=== PATIENT | female | born 2000 | race Caucasian/White ===

== ENCOUNTER → 2022-11-07 | Outpatient (CLI) | payer MEDICAID, SELFPAY ==
[2022-11-11 06:07] LABS: Chlamydia By Nucleic Acid AMP Negative (Negative); Gonococcus By Nucleic Acid AMP Negative (Negative)
[2022-11-13 20:24] LABS: HPV Reflexed? NOT INDICATED
== END | disposition home or self-care (01) ==
LOC: LABSPEC 15:34
PROVIDERS: Referring Provider Obstetrics & Gynecology; Visit Provider Obstetrics & Gynecology
DX: Z34.90 Encounter for supervision of normal pregnancy, unspecified, unspecified trimester (principal)
CPT/HCPCS: 87086; 87088; 87491; 87591; 88175; G0145

== ENCOUNTER → 2022-11-11 | Outpatient (CLI) | payer MEDICAID, SELFPAY ==
[2022-11-11 11:54] LABS: NATERA MAILED SPECIMEN
[2022-11-11 12:41] LABS: Absolute Lymphocyte Count 2.34 X10^3/uL (0.83-4.51); Absolute Neutrophil Count 6.4 X10^3/uL (2.0-7.7); Basophil# 0.05 X10^3/uL; Basophil% 0.5 % (0-1); Eosinophil# 0.33 X10^3/uL; Eosinophils% 3.3 % (0-5); Hematocrit 40.2 % (37-47); Hemoglobin 12.7 g/dL (12.0-15.0); Lymphocyte # 2.34 X10^3/ul (0.83-4.51); Lymphocyte % 23.6 % (19-41); Mean Corp Hgb Conc 31.6 g/dL (32-36); Mean Corpuscular Hgb 27.6 pg (27.0-32.0); Mean Corpuscular Volume 87.4 fL (81-99); Mean Platelet Vol. 11.7 fl (6.2-12.0); Monocyte# 0.71 X10^3/uL; Monocyte% 7.2 % (0-10); NRBC Flagged by Analyzer 0 % (0-5); Neutrophil # 6.44 X10^3/uL (2.7-7.7); Neutrophil % 64.9 % (47-70); Platelet Count 189 K/mm3 (150-450); RBC Distribution Width CV 12.7 % (11.6-14.6); White Blood Count 9.9 K/mm3 (4.4-11.0)
[2022-11-11 13:48] LABS: HIV - WCH Non-Reactive (Nonreactive); Hepatitis B Surface Antigen Non-Reactive (Nonreactive); Hepatitis C Antibody Non-Reactive (Nonreactive); Rubella IgG Reactive (Nonreactive); Syphilis Antibodies Non-reactive
== END | disposition home or self-care (01) ==
LOC: LAB 10:49
PROVIDERS: PCP Family Medicine; Referring Provider Obstetrics & Gynecology; Visit Provider Obstetrics & Gynecology
DX: Z34.81 Encounter for supervision of other normal pregnancy, first trimester (principal); Z31.430 Encounter of female for testing for genetic disease carrier status for procreative management
CPT/HCPCS: 36415; 85025; 86703; 86762; 86780; 86803; 86850; 86900; 86901; 87340

== ENCOUNTER → 2023-02-27 | Outpatient (CLI) | payer OTHER, MEDICAID, SELFPAY ==
[2023-02-27 13:21] LABS: Absolute Lymphocyte Count 1.86 X10^3/uL (0.83-4.51); Absolute Neutrophil Count 9.3 X10^3/uL (2.0-7.7); Basophil# 0.06 X10^3/uL; Basophil% 0.5 % (0-1); Eosinophil# 0.22 X10^3/uL; Eosinophils% 1.8 % (0-5); Hematocrit 36.8 % (37-47); Hemoglobin 12.3 g/dL (12.0-15.0); Lymphocyte # 1.86 X10^3/ul (0.83-4.51); Lymphocyte % 15.2 % (19-41); Mean Corp Hgb Conc 33.4 g/dL (32-36); Mean Corpuscular Volume 83.8 fL (81-99); Mean Platelet Vol. 10.4 fl (6.2-12.0); Monocyte# 0.61 X10^3/uL; NRBC Flagged by Analyzer 0 % (0-5); Neutrophil # 9.32 X10^3/uL (2.7-7.7); Neutrophil % 76.2 % (47-70); Platelet Count 191 K/mm3 (150-450); RBC Distribution Width CV 13.7 % (11.6-14.6); RBC Distribution Width SD 41.9 fl (35.1-43.9); Red Blood Count 4.39 M/mm3 (4.2-5.4); White Blood Count 12.2 K/mm3 (4.4-11.0)
[2023-02-27 13:38] LABS: Glucose Challenge Gest 1H 50g 131 mg/dL (70-140)
[2023-02-27 14:14] LABS: HIV - WCH Non-Reactive (Nonreactive); Syphilis Antibodies Non-reactive
[2023-02-28 06:10] LABS: V-Zoster IgG (Immunity) < 135 index (Immune >165)
[2023-04-24 19:49] VITALS: BMI 27.1
== END | disposition home or self-care (01) ==
LOC: LAB 12:59
PROVIDERS: Nurse Practitioner Women's Health; PCP Family Medicine; Referring Provider Obstetrics & Gynecology; Visit Provider Obstetrics & Gynecology
DX: O09.90 Supervision of high risk pregnancy, unspecified, unspecified trimester (principal); Z78.9 Other specified health status; Z13.1 Encounter for screening for diabetes mellitus; Z3A.00 Weeks of gestation of pregnancy not specified
CPT/HCPCS: 36415; 82950; 85025; 86703; 86780; 86787

== ENCOUNTER 2023-04-24 19:32 | Outpatient (CLI) | payer OTHER, MEDICAID, SELFPAY ==
[2023-04-24 19:48] VITALS: TEMP 36.6
[2023-04-24 19:49] VITALS: BP 122/74; PULSE 78; O2SAT 97
[2023-04-24 20:41] VITALS: BMI 30.6
[2023-04-24 20:54] LABS: Color, Urine Yellow (Yellow); Glucose, Dipstick Normal (Normal); Ketone-Dipstick Negative (Negative); Leukocyte Esterase-Dipstick 25 /ul (Negative); Nitrite-Dipstick Negative (Negative); Occult Blood-Urine Negative /ul (Negative); Protein-Dipstick 15 mg/dl (Negative); Urine Bilirubin Dipstick Negative (Negative); Urine Clarity Sl. Cloudy (Clear); Urine Urobilinogen 1 mg/dl (Normal)
[2023-04-24 21:01] LABS: ROM Internal Control Test YES-OK TO RESULT pt. (Internal QC); ROM Patient Test Negative (Negative); Record Kit Lot#, ROM+ K1374
[2023-04-24 21:51] LABS: Fetal Fibronectin Negative; Record Kit Lot#, fFN E3050
--- NOTE | 2023-04-29 17:46 | OB.TRI.PN_ITS ---
Progress Notes Date of Service: 04/24/23 Progress Note: Patient presents for triage evaluation secondary to threatened labor FHT: 140 Moderate variability reactive no decelerations category I tracing [place]: irregular Contractions Assessment and plan: threatened labor no cervical change Reactive NST, reassuring maternal and status patient discharged to home to follow-up as scheduled. See problem list details for additional plan information. Laboratory Studies: Laboratory Tests 04/24/23 Range/Units 20:15 Urine Color Yellow (Yellow) Urine Clarity Sl. Cloudy (Clear) Urine pH 7.0 (5.0 - 8.0) Ur Specific [place] 1.010 (1.002-1.030) Urine Protein 15 H (Negative) mg/dl Urine Glucose (UA) Normal (Normal) mg/dl Urine Ketones Negative (Negative) mg/dl Urine Occult Blood Negative (Negative) /ul Urine Nitrite Negative (Negative) Urine Bilirubin Negative (Negative) mg/dL Urine Urobilinogen 1 H (Normal) mg/dl Ur Leukocyte Esterase 25 H (Negative) /ul Vag Amniotic Fld Detect Negative (Negative) Fibronectin Negative Charges/Coding Procedures Urinary/Genital [id number]: [id number] non-stress test Interp
== END 2023-04-24 23:00 | disposition home or self-care (01) ==
LOC: WPOUT 19:39 → WP 19:40
PROVIDERS: PCP Family Medicine; Referring Provider Obstetrics & Gynecology; Visit Provider Obstetrics & Gynecology
DX: O60.00 Preterm labor without delivery, unspecified trimester (principal); Z3A.00 Weeks of gestation of pregnancy not specified
CPT/HCPCS: 59025; 59050; 81002; 82731; 84112; 87086

== ENCOUNTER → 2023-05-14 | Outpatient (CLI) | payer MEDICAID, SELFPAY | END | disposition home or self-care (01) | LOC: LABSPEC 15:56 | PROVIDERS: PCP Family Medicine; Referring Provider Nurse Practitioner Women's Health; Visit Provider Nurse Practitioner Women's Health | DX: Z34.90 Encounter for supervision of normal pregnancy, unspecified, unspecified trimester (principal) | CPT/HCPCS: 87081 ==

== ENCOUNTER 2023-05-22 21:40 | Outpatient (CLI) | payer MEDICAID, SELFPAY ==
--- OUTSIDE RECORDS SUMMARY | 2023-05-22 21:50 | XMS RPT_ITS | CCD ---
Author Name Unknown Address [id number] [place] [address] Organization [facility] Care Team Providers Care General Surgeon Name Role Phone Sheets Autumn PAULSON Primary Care Provider [phone] AUTUMN JOE Primary Care Unavailable SHONA LEVY Referring Unavailable SHONA LEVY Attending Unavailable AUTUMN JOE Primary Care Unavailable MANI HALL Attending Unavailable AUTUMN JOE Primary Care Unavailable AUTUMN JOE Primary Care Unavailable SHONA LEVY Attending Unavailable Sheets Autumn PAULSON Primary Care Provider [phone] ADONAY CACERES Attending Unavailabl e SHONA LEVY Referring Unavailable AUTUMN JOE Primary Care Unavailable No refractory specialist, Md Primary Care Provider Mariya vailable CHRISSY SMALLWOOD Referring Unavailable CHRISSY SMALLWOOD Attending Unavailable NO PRIMARY CAREMD Primary Care Unavailable CODY DONALD A Referring Unavailable CODY DONALD A Attending Unavailable NO PRIMARY CAREMD Primary Care Unavailable ANDRES LEDEZMA Referring Unavailjavier e NO PRIMARY CAREMD Primary Care Unavailable DANIELA ALEMAN Attending Unavailable CODY DONALD A Referring Unavailable TELMA ARCEO Attending Unavailable NO PRIMARY CAREMD Primary Care Unavailable ANDRES LEEDZMA Referring UnavailDANIELA Garcia Attending Unavailable NO PRIMARY CAREMD Primary Care Unavailable JENSEN NELSON Attending Unavailable CODY DONALD A Referring Unavailable NO PRIMARY CAREMD Primary Care Unavailable ANDRES LEDEZMA Referring Unavailabl e JOSIANE BHATIA Attending Unavailable SHONA LEVY Primary Care Unavailable CODY DONALD Attending Unavailable SHONA LEVY Referring Unavailable SHONA LEVY Primary Care Unavailable AUTUMN LOMELI Attending Unavailable ANDRES LEDEZMA Referring Unavailjavier e NO PRIMARY CARE, Primary Care Unavailable ANDRES LEDEZMA Referring UnavailCODY Lunsford Attending Unavailable SHONA LEVY Primary Care Unavailable ANDRES LEDEZMA Referring Unavailjavier kal DAVE GARCIA Attending Unavailable NO PRIMARY CARE, Primary Care Unavailable ANDRES LEDEZMA Referring UnavailCODY Lunsford Attending Unavailable NO PRIMARY CARE, Primary Care Unavailable NO PRIMARY CARE, Primary Care Unavailable WASHINGTON PATTERSON Attending Unavailable Allergies Allergy Classification Reported Allergen(s) Allergy Type Date of Onset Reaction(s) Facility (13 sources) Adhesive Tape-Silicones; Translations: [ADHESIVE TAPE-SILICONES] Drug Allergy 1 [facility] (14 sources) Venom-Honey Bee; Translations: [VENOM-HONEY BEE] Drug Allergy 2 [facility] (2 sources) Chlorhexidine; Translations: [CHLORHEXIDINE] Drug Allergy 3 Hives, Itching [facility] (2 sources) kiwi fruit allergenic extract; Translations: [KIWI EXTRACT] Drug Allergy 9 Anaphylaxis [facility] (1 source) bee venom; Translations: [BEE VENOM] Propensity to adverse reactions to drug (disorder) 2 [facility] (1 source) cefdinir; Translations: [CEFDINIR] Drug Allergy 3 [facility] Rep[facility] Medications Current Medications Medication Drug Class(es) Dates Sig (Normalized) Sig (Original) cetirizine hydrochloride 10 mg oral tablet (1 source) Histamine-1 Receptor Antagonist Start: 07-04-2017 take 1 tablet by mouth once daily in the morning cetirizine (ZYRTEC) 10 MG tablet Take 1 Tab (10 mg) by mouth daily in the morning for itching. 30 Tab 3 07/04/2017 Active citalopram 20 mg oral tablet (8 sources) Serotonin Reuptake Inhibitor Start: 01-27-2023 take 1 tablet by mouth once daily citalopram (CELEXA) 20 MG tablet Take 1 Tablet (20 mg) by mouth daily 0 01/27/2023 Active Completed/Discontinued Medications Medication Drug Class(es) Dates Sig (Normalized) Sig (Original) acetaminophen 300 mg / butalbital 50 mg / caffeine 40 mg oral capsule (5 sources) Barbiturate, Central Nervous System Stimulant, Methylxanthine Start: 07-26-2022 take 1 capsule by mouth every six hours as needed for headache acetaminophen 300 mg-caffeine 40 mg-butalbital 50 mg (FIORICET) per capsule Indications: Migraine without aura and without status migrainosus, not intractable Take 1 capsule by mouth every 6 hours as needed for headache. 10 capsule 1 07/26/2022 Active Problems Active Problems Problem Classification Problem Date Documented Date Episodic/Chronic Administrative/social admission (2 sources) Discussed with patient; Translations: [Other specified counseling] Onset: 01-16-2023 02-11-2023 Episodic Anxiety disorders (9 sources) Anxiety; Translations: [Anxiety disorder, unspecified] Onset: 07-26-2022 07-26-2022 Chronic Digestive congenital anomalies (12 sources) Congenital velopharyngeal incompetence; Translations: [Other congenital malformations of pharynx] Onset: 12-02-2014 12-19-2020 Chronic Headache; including migraine (7 sources) Migraine without aura, not refractory ; Translations: [Migraine without aura, not intractable, without status migrainosus] Onset: 07-26-2022 07-26-2022 Chronic Mood disorders (9 sources) Recurrent major depressive episodes, mild ; Translations: [Major depressive disorder, recurrent, mild] Onset: 07-26-2022 07-26-2022 Chronic Other complications of (1 source) ultrasound scan abnormal; Translations: [Abnormal ultrasonic finding on screening of mother] Onset: 01-16-2023 01-16-2023 Episodic Other congenital anomalies (13 sources) Cleft palate with cleft lip; Translations: [Cleft hard and soft palate with unilateral cleft lip] Onset: 11-12-2013 12-19-2020 Chronic Other congenital anomalies (1 source) H/O: cleft palate; Translations: [Personal history of (corrected) cleft lip and palate] Onset: 01-16-2023 01-16-2023 Episodic Other screening for suspected conditions (not mental disorders or infectious disease) (2 sources) Encounter for screening for malignant neoplasm of cervix; Translations: [Patient encounter status] Onset: 01-07-2022 02-11-2023 Episodic Other skin disorders (1 source) Ingrowing toenail; Translations: [Ingrowing nail] Episodic Other skin disorders (1 source) Ingrowing nail; Translations: [Ingrown toenail] Onset: 09-06-2022 Episodic Skin and subcutaneous tissue infections (2 sources) Cellulitis of toe of right foot; Translations: [Cellulitis of right toe] Onset: 09-06-2022 Episodic Past or Other Problems Problem Classification Problem Date Documented Da te Episodic/Chronic Abdominal pain (11 sources) Abdominal pain; Translations: [Unspecified abdominal pain] Onset: 07-16-2021 07-16-2021 Episodic Cardiac dysrhythmias (14 sources) Palpitations; Translations: [Palpitations] Onset: 10-24-2017 10-24-2017 Episodic Conditions associated with dizziness or vertigo (14 sources) Dizziness; Translations: [Dizziness and giddiness] Onset: 10-24-2017 10-24-2017 Episodic Deficiency and other anemia (12 sources) Anemia; Translations: [Anemia, unspecified] Onset: 10-28-2017 12-15-2017 Episodic Other congenital anomalies (1 source) Cleft palate; Translations: [Cleft palate, unspecified] Resolved: 03-27-2017 03-27-2017 Chronic Other nervous system disorders (1 source) Personal history of other diseases of the nervous system and sense organs; Translations: [History of Chiari malformation] Onset: 07-26-2022 Episodic Residual codes; unclassified (13 sources) History of syncope; Translations: [Personal history of other specified conditions] Onset: 10-24-2017 10-24-2017 Episodic Residual codes; unclassified (1 source) Personal history of other specified conditions; Translations: [History of syncope] Onset: 10-24-2017 Episodic Results Test Name Value Interpretation Reference Range Facil ity Vital Signs Date Time Vital Sign Value Performing Clinician Yesenia acuna 12-11-2022 [id number] Body height 175.3 cm Adonay Grissom Work Phone: [facility] 12-11-2022 13:07-0400 Body weight 73.98 kg Adonay Grissom Work Phone: [facility] 12-11-2022 13:07-0400 Diastolic blood pressure 60 mm[Hg] Adonay Caceres DO Work Phone: [facility] 12-11-2022 13:07-0400 Heart rate 67 /min Adonay Rico O Work Phone: [facility] 12-11-2022 13:07-0400 SaO2% (BldA) [Mass fraction] 98 % Adonay Caceres DO Work Phone: [facility] 12-11-2022 13:07-0400 Systolic blood pressure 94 mm[Hg] Adonay Caceres DO Work Phone: [facility] 09-06-2022 12:54-0400 Body height 172.7 cm Shona Levy [employer] Work Phone: [facility] 09-06-2022 12:54-0400 Body weight 70.76 kg Shona Levy [employer] Work Phone: [facility] 09-06-2022 12:54-0400 Diastolic blood pressure 70 mm[Hg] Shona Levy [employer] Work Phone: [facility] 09-06-2022 12:54-0400 Heart rate 97 /min Shona Levy [employer] Work Phone: [facility] 09-06-2022 12:54-0400 SaO2% (BldA) [Mass fraction] 98 % Shona Levy [employer] Work Phone: [facility] 09-06-2022 12:54-0400 Systolic blood pressure 110 mm[Hg] Shona Trisvitlana [employer] Work Phone: [facility] Encounters Encounter Date Encounter Type Care Provider Facility Start: 05-20-2023 End: 05-20-2023 ambulatory CODY DONALD [facility] Start: 04-15-2023 End: 04-15-2023 ambulatory ANDRES LEDEZMA [facility] Start: 03-12-2023 End: 03-12-2023 ambulatory ANDRES LEDEZMA [facility] Start: 03-03-2023 End: 03-03-2023 ambulatory AUTUMN LOMELI [facility] Start: 02-18-2023 End: 02-18-2023 ambulatory JENSEN NELSON [facility] Start: 02-14-2023 End: 02-14-2023 ambulatory ANDRES LEDEZMA [facility] Start: 02-12-2023 End: 02-12-2023 ambulatory CODY Merino [facility] Start: 02-12-2023 End: 02-12-2023 [facility] Start: 02-11-2023 End: 02-12-2023 ambulatory [facility] Start: 02-11-2023 End: 02-11-2023 Subsequent hospital visit by physician Cody Donald MD Work Phone: [facility] Procedures Date Procedure Procedure Detail Performing Clinician Start: 12-11-2022 Ecg routine ecg w/le ast 12 lds i&r only [facility] Provider Start: 12-19-2020 Adult depression screening assessment Shona Levy APRN.CNP Work Phone: Plan of Treatment Date Care Activity Detail Author Start: 01-07-2025 PAP TESTING PAP TESTING [facility] Start: 12-19-2023 PAP TESTING PAP TESTING [facility] Start: 10-10-2023 CHLAMYDIA SCREENING (-) CHLAMYDIA SCREENING (18-) [facility] Start: 10-10-2023 GC (GONORRHEA) SCREE JANNETTE (18-24) GC (GONORRHEA) SCREENING (18-) [facility] Start: 07-27-2023 COVID-19 VACCINE (#1) COVID-19 VACCI NE (#1) [facility] Immunizations Immunization Date Immunization Notes Care Provider Fa cilisaige 02-26-2020 influenza virus vaccine, unspecified formulation Shona Levy APRN.CNP Work Phone: [facility] Work Phone: 02-04-2020 influenza, injectabl e, quadrivalent, preservative free Shona Levy APRN.[facility] Work Phone: [facility] Work Phone: Payers Date Payer Category Payer Medicaid [employer] [place] [id number] 2022-Present [phone] [address] [place] [address] Medicaid [id number] 2021 Unknown [id number] 2021 Unknown [id number] 1998 Unknown [id number] 1998 Unknown [id number] 1998 Unknown [id number]. 1998 Unknown [id number] 1998 Unknown [id number] 1998 Unknown [id number] 1998 Unknown [id number] 1998 Unknown [id number] 1998 Unknown [id number] 1998 Unknown [id number] 1998 Unknown [id number] 1998 Unknown [id number] 1998 Unknown [id number] 1998 Unknown [id number] Unknown [id number] Social History Date Type Detail Facility Start: 06-24-2017 End: 01-29-2023 Tobacco smoking status NHIS Never smoked tobacco [facility] Start: 06-24-2017 End: 01-29-2023 Tobacco use and exposure Smokeless tobacco non-user [facility] Start: 07-15-2021 End: 02-10-2023 Alcohol intake Current non-drinker of alcohol (finding) [facility] Start: 2000 Sex Assigned At Female [facility] Start: 12-28-2021 End: 01-07-2022 Exposure to SARS-CoV-2 (event) Not sure [facility] Start: 07-26-2022 End: 12-11-2022 Alcohol intake Current drinker of alcohol (finding) [facility] Start: 07-26-2022 Alcohol Comment occassionally [facility] Start: 12-11-2022 End: 02-10-2023 History of Social function [facility] Start: 12-11-2022 End: 02-10-2023 Tobacco use panel [facility] Adult Depression Screening Assessment 3 [facility] Start: 08-21-2020 Gender identity Identifies as female gender (finding) [facility] Start: 08-21-2020 Sexual orientation Heterosexual (finding) [facility] History of tobacco use Passive smoker [facility] Start: 01-29-2023 Tobacco Comment Mom wants to quit, needs help to quit [facility] Start: 09-15-2022 [facility] Start: 2000 Sex Assigned At Not on file [facility] Medical Equipment Procedure Code Equipment Code Equipment Origin al Text Equipment Identifier Dates Alloderm 2 X 4 [id number] Start: 03-12-2017 Clinical Notes 11-13-2020 to 12-11-2022 Adonay Caceres DO - 12/11/2022 12:56 PM EDTTelephone Encounter - Polo RiveraREDD clemons - 11/04/2022 8:30 AM EDTTelephone Encounter - Polo Piper MA - 11/01/2022 8:37 AM EDT Note Date & Type Note Facility 12-11-2022 Note HNO ID: [id number] Author: Adonay Caceres DO Service: ? Author Type: Physician Type: Progress Notes Filed: 12/11/2022 1:45 PM Note Text: [facility] [place] Tamir Pereira Department of Cardiovascular Medicine SECTION OF REGIONAL CARDIOLOGY Consultation requested by Autumn Joe DO for an opinion regarding Agustina Barone. My final recommendations will be communicated back to the requesting physician by way of shared Medical record or letter to requesting physician via US mail. CC: palpitations, dizziness/lightheadedness, and syncope/near syncope HPI: Agustina Barone is a 22 year old female with a history of migraines, palpitations, syncope and ( ~13-14 weeks) who is here today for establishment of cardiac care, palpitations, dizziness/lightheadedness, and syncope/near syncope. She does have a history of palpitations and has been on Metroprolol in the past. She did see Dr. Spring at [facility] for this in the past. She has been having heart racing and palpitations for t he last 6 years and this has not changed during . She feels these a few times a day with fast heart rate then gets some SOB that is worse with exertion but it is a little better with . She works 8-10 hrs per day a [employer]. She was on metoprolol but stopped when she ran out about 3 years ago. The patient denies any regular aerobic exercise Patient denies chest pain, dizziness, lightheadedness, lower extremity edema, PND, orthopnea, presyncope, syncope, claudication symptoms, or bleeding issues. PAST MEDICAL HISTORY Diagnosis Date History of syncope Hx of seasonal allergies Migraine Palpitations PAST SURGICAL HISTORY Procedure Laterality Date NASAL SINUS SURGERY HX PALATE SURGERY HX TYMPANOSTOMY LOCAL/TOPICAL ANESTHESIA 2003 FAMILY HISTORY Problem Relation Age of Onset Breast Cancer Maternal Grandmother Diabetes Maternal Grandfather Hypertension Maternal Grandfather Breast Cancer Paternal Grandmother other (lung cancer) Paternal Grandmother other (crohn's) Paternal Grandmother Diabetes Paternal Grandfather Hypertension Paternal Grandfather other (smoker) Mother other (smoker) Father SOCIAL HISTORY Social History Tobacco Use Smoking status: Never Smokeless tobacco: Never Vaping Use Vaping Use: Never used Substance Use Topics Alcohol use: Yes Comment: occassionally Drug use: No ALLERGIES: Venom-Honey Bee and Adhesive Tape-Silicones CURRENT MEDICATIONS: Current Outpatient Medications Medication Sig ferrous sulfate-folic acid (BENTIVITE BX) 35 mg iron- 1 mg tablet Take 1 tablet by mouth. vit-iron fumarate-fa ( MULTIVITAMINS) 28 mg iron- 800 mcg tab Take 1 tablet by mouth once daily for 7 days. acetaminophen 300 mg-caffeine 40 mg-butalbital 50 mg (FIORICET) per capsule Take 1 capsule by mouth every 6 hours as needed for headache. No current facility-administered medications for this visit. ROS: Card: See present history. Pulm: Negative for cough, hemoptysis, wheezing, COPD, dyspnea or shortness of breath Gastro: No nausea, vomiting, or diarrhea GenUr: No history of dysuria, frequency or incontinence Endo: Negative for cold or heat intolerance, polyuria or polydipsia. Neuro: no focal weakness, focal sensory loss, headache, visual changes, seizure activity, ataxia, speech/language loss. Musculoskeletal: Negative for joint or muscle pain, back pain, or swelling. Infect: no fevers, chills, rigors or night sweats. Skin: Negative for lesions, rash, and itching. Heme: Negative for prolonged bleeding, bruising easily or swollen nodes. The remainder of the review of systems is negative. PHYSICAL EXAMINATION: GENERAL: alert cooperative, pleasant oriented x 3 (self, time and place) in no acute distress BP 94/60 Pulse 67 Ht 175.3 cm (5' 9 ) Wt 74 kg (163 lb 1.6 oz) LMP 09/01/2022 (Exact Date) SpO2 98% BMI 24.09 kg/m? Last 3 Encounter BP Readings: Date: BP: 10/09/2022 138/96 09/06/2022 110/70 07/26/2022 118/70 Last 3 Encounter Pulse Readings: Date: Pulse: 10/09/2022 78 09/06/2022 97 07/26/2022 93 Last 3 Encounter Wt Readings: Date: Wt: 10/09/2022 72.6 kg (160 lb) 09/06/2022 70.8 kg (156 lb) 07/26/2022 70.3 kg (155 lb) SKIN: warm, dry, no rash. NECK: supple, no palpable masses, no JVD, carotids well felt, no bruits. CARDIAC: [place] palpable in the 5th intercostal space mid clavicular line, normal S1 and S2, no murmurs, gallops, or rubs. CHEST: Normal respiratory efforts, lungs clear to auscultation bilaterally. ABDOMEN: Soft, no tenderness, rigidity, or masses. No palpable liver or spleen. Normal bowel sounds, no bruits. NEURO: intact cranial nerves II through XII, no motor or sensory deficits in all 4 extremities. EXTREMITIES: No cyanosis, clubbing, or edema. Peripheral pulses w (more content not included)... [facility] 12-11-2022 History of Presen t illness Narrative Images from the original note were not included. [facility] [place] Tamir Pereira Department of Cardiovascular Medicine SECTION OF REGIONAL CARDIOLOGY Consultation requested by Autumn Joe DO for an opinion regarding Agustina Barone. My final recommendations will be communicated back to the requesting physician by way of shared Medical record or letter to requesting physician via [place] mail. CC: palpitations, dizziness/lightheadedness, and syncope/near syncope HPI: Agustina Barone is a 22 year old female with a history of migraines, palpitations, syncope and ( ~13-14 weeks) who is here today for establishment of cardiac care, palpitations, dizziness/lightheadedness, and syncope/near syncope. She does have a history of palpitations and has been on Metroprolol in the past. She did see Dr. Spring at [facility] for this in the past. She has been having heart racing and palpitations for t he last 6 years and this has not changed during . She feels these a few times a day with fast heart rate then gets some SOB that is worse with exertion but it is a little better with . 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 She was on metoprolol but stopped when she ran out about 3 years ago. The patient denies any regular aerobic exercise Patient denies chest pain, dizziness, lightheadedness, lower extremity edema, PND, orthopnea, presyncope, syncope, claudication symptoms, or bleeding issues. PAST MEDICAL HISTORY Diagnosis Date History of syncope Hx of seasonal allergies Migraine Palpitations PAST SURGICAL HISTORY Procedure Laterality Date NASAL SINUS SURGERY HX PALATE SURGERY HX TYMPANOSTOMY LOCAL/TOPICAL ANESTHESIA 2002 FAMILY HISTORY Problem Relation Age of Onset Breast Cancer Maternal Grandmother Diabetes Maternal Grandfather Hypertension Maternal Grandfather Breast Cancer Paternal Grandmother other (lung cancer) Paternal Grandmother other (crohn's) Paternal Grandmother Diabetes Paternal Grandfather Hypertension Paternal Grandfather other (smoker) Mother other (smoker) Father SOCIAL HISTORY Social History Tobacco Use Smoking status: Never Smokeless tobacco: Never Vaping Use Vaping Use: Never used Substance Use Topics Alcohol use: Yes Comment: occassionally Drug use: No ALLERGIES: Venom-Honey Bee and Adhesive Tape-Silicones CURRENT MEDICATIONS: Current Outpatient Medications Medication Sig ferrous sulfate-folic acid (BENTIVITE BX) 35 mg iron- 1 mg tablet Take 1 tablet by mouth. vit-iron fumarate-fa ( MULTIVITAMINS) 28 mg iron- 800 mcg tab Take 1 tablet by mouth once daily for 7 days. acetaminophen 300 mg-caffeine 40 mg-butalbital 50 mg (FIORICET) per capsule Take 1 capsule by mouth every 6 hours as needed for headache. No current facility-administered medications for this visit. ROS: Card: See present history. Pulm: Negative for cough, hemoptysis, wheezing, COPD, dyspnea or shortness of breath Gastro: No nausea, vomiting, or diarrhea GenUr: No history of dysuria, frequency or incontinence Endo: Negative for cold or heat intolerance, polyuria or polydipsia. Neuro: no focal weakness, focal sensory loss, headache, visual changes, seizure activity, ataxia, speech/language loss. Musculoskeletal: Negative for joint or muscle pain, back pain, or swelling. Infect: no fevers, chills, rigors or night sweats. Skin: Negative for lesions, rash, and itching. Heme: Negative for prolonged bleeding, bruising easily or swollen nodes. The remainder of the review of systems is negative. PHYSICAL EXAMINATION: GENERAL: alert cooperative, pleasant oriented x 3 (self, time and place) in no acute distress BP 94/60 Pulse 67 Ht 175.3 cm (5' 9 ) Wt 74 kg (163 lb 1.6 oz) LMP 09/01/2022 (Exact Date) SpO2 98% BMI 24.09 kg/m Last 3 Encounter BP Readings: Date: BP: 10/09/2022 138/96 09/06/2022 110/70 07/26/2022 118/70 Last 3 Encounter Pulse Readings: Date: Pulse: 10/09/2022 78 09/06/2022 97 07/26/2022 93 Last 3 Encounter Wt Readings: Date: Wt: 10/09/2022 72.6 kg (160 lb) 09/06/2022 70.8 kg (156 lb) 07/26/2022 70.3 kg (155 lb) SKIN: warm, dry, no rash. NECK: supple, no palpable masses, no JVD, carotids well felt, no bruits. CARDIAC: [place] palpable in the 5th intercostal space mid clavicular line, normal S1 and S2, no murmurs, gallops, or rubs. CHEST: Normal respiratory efforts, lungs clear to auscultation bilaterally. ABDOMEN: Soft, no tenderness, rigidity, or masses. No palpable liver or spleen. Normal bowel sounds, no bruits. NEURO: intact cranial nerves II through XII, no motor or sensory deficits in all 4 extremities. EXTREMITIES: No cyanosis, clubbing, or edema. Peripheral pulses well felt. CARDIAC (& OTHER IMPORTANT) TESTING: Stress ECG 08/21/2020: STRESS ECG CONCLUSION: ECG Response: Normal Post test BP 113/71 See Prior STRESS ECG SUMMARY: The patient's resting heart rate was 83 bpm and blood pressure was 120/87 mmHg. The patient exercised according to the Brooks protocol. Total exercise time was 7 minutes and 0 seconds. The maximum heart rate was 181 bpm, which is 91% predicted for age. METs achieved was 11.2. The double product achieved was 11639. Peak heart rate was 181 bpm and peak blood pressure was 131/73 mmHg. STRESS ECG FINDINGS: Indications: Dyspnea Symptoms: Palpitations and SOB Medications: Betablocker Medications: Metoprolol 25 mg BID, Control pill Echo 01/18/2020: CONCLUSIONS: - Exam indication: Palpitations - The left ventricle is normal in size. Left ventricular systolic function is normal. EF = 68 5% (2D biplane) - The right ventricle is normal in size. Right ventricular systolic function is normal. Tricuspid annular displacement is 2.0 cm. - There is mild billowing/borderline prolapse of the anterior mitral leaflet, without significant regurgitation. - There is no pericardial effusion. - The patient has not had a prior CC echocardiographic exam for comparison. LABS: No results found for: CHOL , HDL , LDL , TG TSH Date Value Ref Range Status 07/26/2022 0.869 0.270 - 4.200 mIU/L Final Comment: If the patient is , TSH reference range varies by gestational period: First Trimester (weeks 9-12): 0.180-2.990 mIU/L Second Trimester: 0.110-3.980 mIU/L Third Trimester: 0.480-4.710 mIU/L Colby Ohara et al. A Practical Approach for the Verifications and Determination of Site- and Trimester-Specific Reference Intervals for Thyroid Function tests in . Thyroid, 2019:29:3:412-420. Bon Strange, et al. 2017 Guidelines of the [employer] Thy[employer] for the Diagnosis and Management of Thyroid Disease during and the . Thyroid, 2017:27:3:315-389. ASSESSMENT/PLAN: Palpitations Stable off meds and a little better during (likely related to increase volume) Continue conservative approach. Not necessarily related to standing 14 weeks gestation Borderline prolapse of anterior mitral leaflet No MR per echo 2019 She is doing very well and now starting the second trimester of her . Her palpitations have actually improved a little bit during and this may be related to some increased volume. We did talk about the importance of lifestyle adjustments and voiding any type of stimulants and having adequate fluid intake. She has been off of beta-wero for 3 years now and doing well. Her cardiac work-up in the past has been relatively unremarkable. She did have some symptoms with her monitor showing just occasional sinus tachycardia or ectopy. I did have her stand for heart rate increase which was 10 to 15 bpm however her symptoms are not consistent with POTS. Her palpitations do not appear to be related to positional changes. We will check again with her postdelivery and as needed prior. She will let us know if there are any changes. I will consider repeating her echo in the future. Thank you for allowing me the privilege of participating in the care of your patient. Please do not hesitate to contact me if there are any questions. Adonay Caceres DO, FACC, FCCP, FACOI CC: Autumn Joe [address] [place] [address] documented in this encounter [facility] 11-04-2022 Miscellaneous Notes Left a message for patient to call back or reply through [employer] Polo Piper MA Attempted reach patient no answer and VM box is full Polo Piper MA Please call pt- she should wean off celexa by taking it every other day for one week, because she is . Is she taking a vitamin with folic acid and iron? Is she under the care of an CAN FILLING AND CLOSING MACHINE TENDER? Autumn Joe DO Patient wanted Dr. Joe to know she is 7 weeks and 5 days . Sherrill Guidry MA documented in this encounter [facility] 10-15-2022 Note HNO ID: [id number] Author: Polo Piper MA Service: ? Author Type: Cattle And Wheat Farmer Type: Progress Notes Filed: 10/15/2022 3:50 PM Note Text: ED Follow Up: Patient discharged from [facility] ED on 10/09/22. 1. How are you feeling since your ED visit? na Have your symptoms improved or resolved? Not applicable 2. Were you prescribed any medications while in the ED or advised to stop any medication? Not applicable - If yes, were you able to fill your prescriptions? Not applicable -if stopped medication, what was the medication? na 3. Were you advised to schedule a follow up appointment with your provider? Not applicable - If no, Do you feel like you need an appointment scheduled? Not applicable - If yes, Do you need this scheduled now or has this already been scheduled? Not applicable 4. Were you able to contact the office or tester semiconductor packages provider prior to your ED visit? Not applicable 5. Is there anything else I can do for you today? Not applicable Polo Piper MA [facility] 10-15-2022 Note Patient Outreach (AG FAMPLE) AGUSTINA BARONE ([id number]) 2000 F Date Time Provider Department 10/15/22 AUTUMN JOE During your visit today, we recorded the following information about you: Polo Piper MA 10/15/2022 3:50 PM Signed ED Follow Up: Patient discharged from [facility] ED on 10/09/22. 1. How are you feeling since your ED visit? na Have your symptoms improved or resolved? Not applicable 2. Were you prescribed any medications while in the ED or advised to stop any medication? Not applicable - If yes, were you able to fill your prescriptions? Not applicable -if stopped medication, what was the medication? na 3. Were you advised to schedule a follow up appointment with your provider? Not applicable - If no, Do you feel like you need an appointment scheduled? Not applicable - If yes, Do you need this scheduled now or has this already been scheduled? Not applicable 4. Were you able to contact the office or tester semiconductor packages provider prior to your ED visit? Not applicable 5. Is there anything else I can do for you today? Not applicable Polo Piper MA Allergies As of Date: 10/15/2022 Noted Allergy Reaction VENOM-HONEY BEE 10/18/2011 4 - Hives ADHESIVE TAPE-SILICONES 12/18/2020 4 - Hives Comments: Actual reaction was to tegaderm Date Reviewed: 10/09/2022 Reviewed by: Eunice Robison) (Hist) IGNACIO Stovall - Fully Assessed Prescriptions as of 10/15/2022 - acetaminophen (TYLENOL) 325 mg tablet Take 2 tablets by mouth every 4 hours as needed for pain for up to 7 days. - pyridoxine, vitamin B6, (VITAMIN B6) 25 mg tablet Take 1 tablet by mouth three times daily. - vit-iron fumarate-fa ( MULTIVITAMINS) 28 mg iron- 800 mcg tab Take 1 tablet by mouth once daily for 7 days. - citalopram (CELEXA) 20 mg tablet Take 1 tablet by mouth once daily. - acetaminophen 300 mg-caffeine 40 mg-butalbital 50 mg (FIORICET) per capsule Take 1 capsule by mouth every 6 hours as needed for headache. - metoprolol tartrate, short acting, (LOPRESSOR) 25 mg tablet TAKE 1 TABLET BY MOUTH TWICE DAILY Problem List As Of Date 10/15/2022 Noted Resolved Dizziness [R42] 10/24/2017 History of syncope [Z87.898] 10/24/2017 Heart palpitations [R00.2] 10/24/2017 Absolute anemia [D64.9] 10/28/2017 Sprain of right wrist [S63.501A] 11/21/2020 01/09/2021 Velopharyngeal insufficiency (VPI), congenital *12/02/2014 Unilateral cleft palate with cleft lip, complet*11/12/2013 Abdominal pain [R10.9] 07/16/2021 Mild episode of recurrent major depressive diso*07/26/2022 Anxiety [F41.9] 07/26/2022 Migraine without aura and without status migrai*07/26/2022 Encounter Status:Closed by POLO PIPER on 10/15/22 [facility] 09-26-2022 Miscellaneous Notes Patient requesting refills as follows: Last Office Visit 09/06/22. Patient needs a new script for 20 mg Requested Prescriptions Pending Prescriptions Disp Refills citalopram (CELEXA) 20 mg tablet 30 tablet 2 Sig: Take 1 tablet by mouth once daily. Please review and advise. Polo Piper MA documented in this encounter [facility] 09-06-2022 Note HNO ID: [id number] Author: Shona Levy APRN.MS SQL SERVER DEVELOPER Service: ? Author Type: Nurse Practitioner Type: Progress Notes Filed: 09/11/2022 11:00 PM Note Text: This note was created using [employer]. Subjective Agustina Barone is a 21 year old female here today for follow-up anxiety, depression. I reviewed past medical, surgical, social, and family histories today and updated chart. Allergies, chronic medications, and supplements were also reviewed. Changed to a new position at work so feeling more stressed Feeling more anxiety and depressed Found out she was not this week and felt depressed Was hoping she was Started trying about 1 month ago Started Celexa 10 mg once a day. Can tell if she doesn't take it. Heart palpitations, SOB still occurring Rarely has CP Has appt with cardiology set up Had to sit and rest after moving furniture recently Fiorcet was prescribed for migraine Has had MORRISSEY for 1.5 weeks. She is alternating between the fiorcet, ibuprofen and excedrin migraine. The fiorcet is working well but she's not taking it that often because of the addictive properties of the medications. The recent headaches have been occurring first thing in the morning PAST MEDICAL HISTORY Diagnosis Date History of syncope Hx of seasonal allergies Migraine Palpitations PAST SURGICAL HISTORY Procedure Laterality Date NASAL SINUS SURGERY HX PALATE SURGERY HX TYMPANOSTOMY LOCAL/TOPICAL ANESTHESIA 2003 ALLERGIES Venom-Honey Bee and Adhesive Tape-Silicones MEDICATIONS acetaminophen 300 mg-caffeine 40 mg-butalbital 50 mg (FIORICET) per capsule Take 1 capsule by mouth every 6 hours as needed for headache. citalopram hydrobromide (CELEXA) 10 mg tablet Take 1 tablet by mouth once daily. metoprolol tartrate, short acting, (LOPRESSOR) 25 mg tablet TAKE 1 TABLET BY MOUTH TWICE DAILY (Patient not taking: Reported on 07/26/2022) Norgestimate-Ethinyl Estradiol (TRI-LO-ALESSANDRA) 0.18/0.215/0.25 mg-25 mcg Take 1 tablet by mouth once daily. (Patient not taking: Reported on 09/06/2022) FAMILY HISTORY Problem Relation Age of Onset Breast Cancer Maternal Grandmother Diabetes Maternal Grandfather Hypertension Maternal Grandfather Breast Cancer Paternal Grandmother other (lung cancer) Paternal Grandmother other (crohn's) Paternal Grandmother Diabetes Paternal Grandfather Hypertension Paternal Grandfather other (smoker) Mother other (smoker) Father Social History Tobacco Use Smoking status: Never Smokeless tobacco: Never Vaping Use Vaping Use: Never used Substance Use Topics Alcohol use: Yes Comment: occassionally Drug use: No Review of Systems Constitutional: Positive for fatigue. Negative for appetite change, chills, fever and unexpected weight change. HENT: Negative for congestion, ear pain, rhinorrhea and sore throat. Eyes: Negative for pain, discharge, itching and visual disturbance. Respiratory: Positive for shortness of breath. Negative for cough and wheezing. Cardiovascular: Positive for chest pain and palpitations. Negative for leg swelling. Gastrointestinal: Negative for abdominal pain, constipation, diarrhea, nausea and vomiting. Genitourinary: Negative for difficulty urinating. Musculoskeletal: Negative for arthralgias. Skin: Negative for rash. Neurological: Positive for headaches. Negative for dizziness, tremors and weakness. Psychiatric/Behavioral: Positive for dysphoric mood and sleep disturbance. The patient is nervous/anxious. Still trying to get use to the time change, went from 2nd to 3rd shift Objective BP 110/70 Pulse 97 Ht 172.7 cm (5' 8 ) Wt 70.8 kg (156 lb) LMP 01/05/2022 (Exact Date) SpO2 98% BMI 23.72 kg/m? Physical Exam HENT: Head: Normocephalic and atraumatic. Eyes: Conjunctiva/sclera: Conjunctivae normal. Pupils: Pupils are equal, round, and reactive to light. Cardiovascular: Rate and Rhythm: Normal rate and regular rhythm. Pulses: Normal pulses. Heart sounds: Normal heart sounds. Pulmonary: Effort: Pulmonary effort is normal. Breath sounds: Normal breath sounds. Musculoskeletal: Cervical back: Normal range of motion and neck supple. Feet: Lymphadenopathy: Cervical: No cervical adenopathy. Skin: General: Skin is warm and dry. Neurological: General: No focal deficit present. Mental Status: She is alert and oriented to person, place, and time. Cranial Nerves: No cranial nerve deficit. Sensory: Sensation is intact. Motor: Motor function is intact. Coordination: Coordination is intact. Psychiatric: Attention and Perception: Attention and perception normal. Mood and Affect: Affect normal. Mood is anxious and depressed. Affect is not labile or inappropriate. Speech: Speech normal. Behavior: Behavior normal. Behavior is not agitated. Thought Content: Thought content normal. Thought content does not include suicidal ideation. Cognition and Isaias (more content not included)... [facility] 09-06-2022 History of Presen t illness Narrative Images from the original note were not included. This note was created using [employer]. Subjective Agustina Barone is a 21 year old female here today for follow-up anxiety, depression. I reviewed past medical, surgical, social, and family histories today and updated chart. Allergies, chronic medications, and supplements were also reviewed. Changed to a new position at work so feeling more stressed Feeling more anxiety and depressed Found out she was not this week and felt depressed Was hoping she was Started trying about 1 month ago Started Celexa 10 mg once a day. Can tell if she doesn't take it. Heart palpitations, SOB still occurring Rarely has CP Has appt with cardiology set up Had to sit and rest after moving furniture recently Fiorcet was prescribed for migraine Has had MORRISSEY for 1.5 weeks. She is alternating between the fiorcet, ibuprofen and excedrin migraine. The fiorcet is working well but she's not taking it that often because of the addictive properties of the medications. The recent headaches have been occurring first thing in the morning PAST MEDICAL HISTORY Diagnosis Date History of syncope Hx of seasonal allergies Migraine Palpitations PAST SURGICAL HISTORY Procedure Laterality Date NASAL SINUS SURGERY HX PALATE SURGERY HX TYMPANOSTOMY LOCAL/TOPICAL ANESTHESIA 2002 ALLERGIES Venom-Honey Bee and Adhesive Tape-Silicones MEDICATIONS acetaminophen 300 mg-caffeine 40 mg-butalbital 50 mg (FIORICET) per capsule Take 1 capsule by mouth every 6 hours as needed for headache. citalopram hydrobromide (CELEXA) 10 mg tablet Take 1 tablet by mouth once daily. metoprolol tartrate, short acting, (LOPRESSOR) 25 mg tablet TAKE 1 TABLET BY MOUTH TWICE DAILY (Patient not taking: Reported on 07/26/2022) Norgestimate-Ethinyl Estradiol (TRI-LO-ALESSANDRA) 0.18/0.215/0.25 mg-25 mcg Take 1 tablet by mouth once daily. (Patient not taking: Reported on 09/06/2022) FAMILY HISTORY Problem Relation Age of Onset Breast Cancer Maternal Grandmother Diabetes Maternal Grandfather Hypertension Maternal Grandfather Breast Cancer Paternal Grandmother other (lung cancer) Paternal Grandmother other (crohn's) Paternal Grandmother Diabetes Paternal Grandfather Hypertension Paternal Grandfather other (smoker) Mother other (smoker) Father Social History Tobacco Use Smoking status: Never Smokeless tobacco: Never Vaping Use Vaping Use: Never used Substance Use Topics Alcohol use: Yes Comment: occassionally Drug use: No Review of Systems Constitutional: Positive for fatigue. Negative for appetite change, chills, fever and unexpected weight change. HENT: Negative for congestion, ear pain, rhinorrhea and sore throat. Eyes: Negative for pain, discharge, itching and visual disturbance. Respiratory: Positive for shortness of breath. Negative for cough and wheezing. Cardiovascular: Positive for chest pain and palpitations. Negative for leg swelling. Gastrointestinal: Negative for abdominal pain, constipation, diarrhea, nausea and vomiting. Genitourinary: Negative for difficulty urinating. Musculoskeletal: Negative for arthralgias. Skin: Negative for rash. Neurological: Positive for headaches. Negative for dizziness, tremors and weakness. Psychiatric/Behavioral: Positive for dysphoric mood and sleep disturbance. The patient is nervous/anxious. Still trying to get use to the time change, went from 2nd to 3rd shift Objective BP 110/70 Pulse 97 Ht 172.7 cm (5' 8 ) Wt 70.8 kg (156 lb) LMP 01/05/2022 (Exact Date) SpO2 98% BMI 23.72 kg/m Physical Exam HENT: Head: Normocephalic and atraumatic. Eyes: Conjunctiva/sclera: Conjunctivae normal. Pupils: Pupils are equal, round, and reactive to light. Cardiovascular: Rate and Rhythm: Normal rate and regular rhythm. Pulses: Normal pulses. Heart sounds: Normal heart sounds. Pulmonary: Effort: Pulmonary effort is normal. Breath sounds: Normal breath sounds. Musculoskeletal: Cervical back: Normal range of motion and neck supple. Feet: Lymphadenopathy: Cervical: No cervical adenopathy. Skin: General: Skin is warm and dry. Neurological: General: No focal deficit present. Mental Status: She is alert and oriented to person, place, and time. Cranial Nerves: No cranial nerve deficit. Sensory: Sensation is intact. Motor: Motor function is intact. Coordination: Coordination is intact. Psychiatric: Attention and Perception: Attention and perception normal. Mood and Affect: Affect normal. Mood is anxious and depressed. Affect is not labile or inappropriate. Speech: Speech normal. Behavior: Behavior normal. Behavior is not agitated. Thought Content: Thought content normal. Thought content does not include suicidal ideation. Cognition and Memory: Cognition normal. Judgment: Judgment normal. Judgment is not impulsive. ASSESSMENT/PLAN: 1. Mild episode of recurrent major depressive disorder (HCC) - ICD9: 296.31, ICD10: F33.0 (primary diagnosis) Increase celexa to 20 mg once a day - CITALOPRAM 20 MG TABLET 2. Anxiety - ICD9: 300.00, ICD10: F41.9 Increase celexa to 20 mg once a day - CITALOPRAM 20 MG TABLET 3. Ingrown toenail - ICD9: 703.0, ICD10: L60.0 Referral to podiatry - CONSULT TO PODIATRY 4. Cellulitis of toe of right foot - ICD9: 681.10, ICD10: L03.031 - Begin treatment with Trimethoprim-sulfamethozazole (Bactrim) 2 DS PO BID - Area of cellulitis defined with pen, seek further attention if this area continues to enlarge - CONSULT TO PODIATRY - SULFAMETHOXAZOLE 800 MG-TRIMETHOPRIM 160 MG TABLET FU 6-8 weeks Shona Levy APRN.MS SQL SERVER DEVELOPER documented in this encounter [facility] 07-29-2022 Miscellaneous Notes Mail box is full cannot accept any messages. Ronda Thakur MA ----- Message from Shona Levy APRN.MS SQL SERVER DEVELOPER sent at 07/29/2022 9:04 AM EDT ----- Please notify patient results are normal. Thank you. Shona Levy APRN.MS SQL SERVER DEVELOPER documented in this encounter [facility] 07-26-2022 Note HNO ID: [id number] Author: Shona Levy APRN.CNP Service: ? Author Type: Nurse Practitioner Type: Progress Notes Filed: 07/26/2022 2:10 PM Note Text: This note was created using [employer]. Subjective Agustina Barone is a 21 year old female here today for depression, anxiety, headaches. I reviewed past medical, surgical, social, and family histories today and updated chart. Allergies, chronic medications, and supplements were also reviewed. Depression/anxiety - not a new problem but has never been formally diagnosed Wakes up tired Dreads going to work everyday Doesn't want to get out of bed Just wants to sleep Will sleep but its not very good sleep Irritable, fidgets a lot, taps/moving all the time Has panic attacks - gets out of breath, can't focus on anything. Shaky, cries. Dating boyfriend Lives with her grandmother Works at [employer] - not a high stress job Will either eat a lot or nothing - goes back and forth Thinks she could always do better to stay healthy, thinking she's overweight Has never been on medication in the past Migraines - Started many years ago She is getting 2-3 headaches per week Saw a neurologist, Chiari malformation, causing headaches Rizatriptan - did not help Sumatriptan - made her feel very tense Does not remember it it helped Will last days - one lasted 5 days Sometimes they are related to anxiety Severity of pain: Depends in intensity. Starts out mild usually Pain scale: most of the time 6-7/10, has been a while since a 02/25 Onset: Pain is located: moves around, temples, around eyes, top of head, will engulf whole head Pain is described as: bashing feeling to back of head, jabbing/throbbing pain behind eyeballs ASSOCIATED SYMPTOMS: Fever: No Nausea: Yes Vomiting: only once or twice Photophobia: Yes Neck Stiffness: No Inability to move head freely or touch chin to neck: No Sinus congestion: Yes Has a deviated septum Hx cleft lip and palate when she was born Purulent nasal discharge: No Toothache/dental problem: Yes - has a couple broken teeth Has a dentist, due for appt Tongue or Jaw Pain: No Scalp pain with combing hair: Yes Sometimes feels like her hair is too tight NEUROLOGIC SYMPTOMS: Numbness: Yes - just during panic attacks Weakness: No Slurred speech: No Visual changes: Yes - sometimes goes blurry, blurry spots. Sometimes correlates with headaches coming on Dizziness: Yes Clumsiness: Yes Difficulty with gait: No Change in level of consciousness: No Change in orientation: No Change in behavior: No History of headaches: migraine Injury/Trauma: Yes, fell off horse trough and hit head about 8 years ago, no concussion that she's aware Hit her head at work the other day Caffeine Intake: Yes Drinks 1-2 cups per day Sometimes an energy drink Alcohol Intake: Yes - just occasionally Treatment attempted: ibuprofen, excedrin, dark room Hx heart issues - history of irregular heart beats, she would feel skipped beats Was on metoprolol in the past - didn't really help She feels short of breath a lot Rarely has chest pain Saw Dr. Spring in 2020 No syncopal episodes since 2018 - hot day in barn, bit by a cat Stress test and ECHO came back okay If she gets dehydrated and doesn't realize will wake up in the middle of the night and go to throw up, get black spots in vision, tries to throw up, then felt really hot and sweaty PAST MEDICAL HISTORY Diagnosis Date History of syncope Hx of seasonal allergies Migraine Palpitations PAST SURGICAL HISTORY Procedure Laterality Date NASAL SINUS SURGERY HX PALATE SURGERY HX TYMPANOSTOMY LOCAL/TOPICAL ANESTHESIA 2002 ALLERGIES Venom-Honey Bee and Adhesive Tape-Silicones MEDICATIONS Norgestimate-Ethinyl Estradiol (TRI-LO-ALESSANDRA) 0.18/0.215/0.25 mg-25 mcg Take 1 tablet by mouth once daily. amitriptyline (ELAVIL) 10 mg tablet Take 1 tablet by mouth daily at bedtime. (Patient not taking: Reported on 01/07/2022) metoprolol tartrate, short acting, (LOPRESSOR) 25 mg tablet TAKE 1 TABLET BY MOUTH TWICE DAILY (Patient not taking: Reported on 07/26/2022) rizatriptan (MAXALT) 10 mg tablet Take 1 tablet by mouth as directed. at onset of headache. May repeat after 2 hours. Do not exceed 30 mg per day. (Patient not taking: No sig reported) Norgestimate-Ethinyl Estradiol (ORTHO TRI-CYCLEN LO, 28,) 0.18/0.215/0.25 mg-25 mcg Take 1 tablet by mouth once daily. multivitamin/iron/folic acid (CENTRUM WOMEN ORAL) Take 1 tablet by mouth once daily. (Patient not taking: Reported on 01/07/2022) FAMILY HISTORY Problem Relation Age of Onset Breast Cancer Maternal Grandmother Diabetes Maternal Grandfather Hypertension Maternal Grandfather Breast Cancer Paternal Grandmother other (lung cancer) Paternal Grandmother other (crohn's) Paternal Grandmother Diabetes Paternal Grandfather Hypertension Paternal Grandfather other (smoker) Mot (more content not included)... [facility] 02-07-2022 Miscellaneous Notes Patient's request for medication is as follows: Requested Prescriptions Pending Prescriptions Disp Refills metoprolol tartrate, short acting, (LOPRESSOR) 25 mg tablet [Pharmacy Med Name: metoprolol tartrate 25 mg tablet] 30 tablet 0 Sig: TAKE 1 TABLET BY MOUTH TWICE DAILY Patient last seen 07/20/2020. Patient notified of need for appointment on 01/25/2021. Cancelled appointments scheduled for 02/15/2021 and 02/21/2021. Patient notified of need for appointment again on 01/30/2022 and has not scheduled. Message sent to pharmacy notifying patient of need for appointment prior to future refills. Prescription(s) as above. Please process accordingly. Renu Gamble LPN documented in this encounter [facility] 01-30-2022 Miscellaneous Notes Patient last seen 07/20/2020. Patient will need f/u appt for further refills. Please reach out to patient to schedule appt. Thanks! Jen Pierre MA documented in this encounter [facility] 01-30-2022 Miscellaneous Notes Patient's request for medication is as follows: Requested Prescriptions Pending Prescriptions Disp Refills metoprolol tartrate, short acting, (LOPRESSOR) 25 mg tablet 30 tablet 0 Sig: Take 1 tablet by mouth twice daily. Patient last seen 07/20/2020. Patient requires appt for further refills. Message sent to clerical for appt Prescription(s) as above. Please process accordingly. Jen Pierre MA documented in this encounter [facility] 12-25-2021 Miscellaneous Notes pharmacy electronically requesting refills as follows: Last seen 12/19/20 with Shona Levy CNP . Last refill 12/19/20 . No future appointments, left message informing patient she is due for office visit and requested she call back to schedule. Requested Prescriptions Pending Prescriptions Disp Refills amitriptyline (ELAVIL) 10 mg tablet [Pharmacy Med Name: amitriptyline 10 mg tablet] 30 tablet 0 Sig: Take 1 tablet by mouth daily at bedtime. Please review and advise. Sherrill Guidry MA documented in this encounter [facility] documented as of this encounter (statuses as of 12/25/2021) [facility] History of Past illness Narrative* Problem Noted Date Resolved Date Sprain of right wrist 11/21/2020 01/09/2021 documented as of this encounter (statuses as of 01/04/2022) [facility] History of Past illness Narrative* Problem Noted Date Resolved Date Sprain of right wrist 11/21/2020 01/09/2021 documented as of this encounter (statuses as of 01/04/2022) [facility] History of Past illness Narrative* Problem Noted Date Resolved Date Sprain of right wrist 11/21/2020 01/09/2021 documented as of this encounter (statuses as of 01/30/2022) [facility] History of Past illness Narrative* Problem Noted Date Resolved Date Sprain of right wrist 11/21/2020 01/09/2021 documented as of this encounter (statuses as of 01/31/2022) [facility] History of Past illness Narrative* Problem Noted Date Resolved Date Sprain of right wrist 11/21/2020 01/09/2021 documented as of this encounter (statuses as of 02/07/2022) [facility] History of Past illness Narrative* Problem Noted Date Resolved Date Sprain of right wrist 11/21/2020 01/09/2021 documented as of this encounter (statuses as of 07/29/2022) [facility] History of Past illness Narrative* Problem Noted Date Resolved Date Sprain of right wrist 11/21/2020 01/09/2021 documented as of this encounter (statuses as of 09/12/2022) [facility] History of Past illness Narrative* Problem Noted Date Resolved Date Sprain of right wrist 11/21/2020 01/09/2021 documented as of this encounter (statuses as of 09/26/2022) [facility] History of Past illness Narrative* Problem Noted Date Resolved Date Sprain of right wrist 11/21/2020 01/09/2021 documented as of this encounter (statuses as of 11/08/2022) [facility] History of Past illness Narrative* Problem Noted Date Diagnosed Date Resolved Date Sprain of right wrist 11/21/20202020 documented as of this encounter (statuses as of 12/11/2022) [facility] NoteHNO ID: [id number] Author: JESÚS Guillen Service: Radiology Author Type: Clinical Medical Lab Tech Instructor Type: Progress Notes Filed: 11/13/2020 1:29 PM Note Text: Radiology Service Progress Note PATIENT NAME: Agustina Barone DATE OF SERVICE: November 13, 2020 TIME: 1:29 PM PATIENT IDENTITY VERIFICATION COMPLETED USING TWO (2) IDENTIFIERS: Name and Date of confirmed by patient verbally. FALL SCREENING: Has the patient had 2 falls in the last year or 1 fall with injury or currently using an Ambulatory Assistive Device (Walker, Cane, Wheelchair, Crutches, etc.)? No PATIENT GENDER DATA: Female. status: : No status: NO. PATIENT RELEVANT IMPLANT DATA REVIEWED: Not Applicable RADIOLOGY DEPARTMENT: General X-ray: Exam(s) Completed: Upper Extremity X-Ray(s): Wrist, right PERIPHERAL IV DATA: Not applicable SIGNED BY: JESÚS Guillen November 13, 2020 1:29 [facility] Diagnosis Mild episode of recurrent major depressive disorder (HCC)- Primary Anxiety Anxiety state, unspecified Ingrown toenail Ingrowing nail Cellulitis of toe of right foot Cellulitis and abscess of toe, unspecified [facility] Diagnosis Mild episode of recurrent major depressive disorder (HCC) Anxiety Anxiety state, unspecified documented in this encounter [facility] note* Diagnosis Heart palpitations- Primary Palpitations History of syncope Other specified personal history presenting hazards to health Dizziness Dizziness and giddiness Migraine without aura and without status migrainosus, not intractable Migraine without aura, without mention of intractable migraine without mention of status migrainosus Unilateral cleft palate with cleft lip, complete [facility]* Diagnosis Screening, , for malformation by ultrasound Encounter for routine screening for malformation using ultrasonics Treatment Center Plan of Care documented in this encounter [facility] Summary Purpose Family History No Family History Records FoundNo Family History Records FoundNo Family History Records FoundNo Family History Records FoundNo Family History Records Found Advance Directives No Advanced Directives Records FoundNo Advanced Directives Records FoundNo Advanced Directives Records FoundNo Advanced Directives Records FoundNo Advanced Directives Records Found Reason for Referral Specialty Diagnoses / Procedures Referred By Jonas t Referred To Contact Diagnoses Ingrown toenail Cellulitis of toe of right foot Procedures CONSULT TO PODIATRY OFFICE/OUTPATIENT [facility] 60-74 MINUTES Shona Levy APRN.MS SQL SERVER DEVELOPER [address] [facility] [place] [address] [facility] [place] [address] Referral ID Status Reason Start Date Expiration Date Visits Requested Visits Authorized [id number] Authorized PCP Requested Referral 09/06/2022 09/06/2023 1 1 Additional Source Comments INFORMATION SOURCE (unrecogn ized section and content) DATE CREATED AUTHOR AUTHOR'S ORGANIZ ATION 11/14/2020 [facility] DATE CREATED AUTHOR AUTHOR'S ORGANIZ ATION 11/09/2022 [facility] DATE CREATED AUTHOR AUTHOR'S ORGANIZ ATION 12/25/2022 [facility] DATE CREATED AUTHOR AUTHOR'S ORGANIZ ATION 05/21/2023 [facility] Source Comments (unrecognize d section and content) In the event this informatio n is protected by the Federal Confidentiality of Alcohol and Drug Abuse Patient Records regulations: The Federal rules restrict any use of the information to criminally investigate or prosecute any alcohol or drug abuse patient.[facility] the event this information is protected by the Federal Confidentiality of Alcohol and Drug Abuse Patient Records regulations: The Federal rules restrict any use of the information to criminally investigate or prosecute any alcohol or drug abuse patient.[facility] the event this information is protected by the Federal Confidentiality of Alcohol and Drug Abuse Patient Records regulations: The Federal rules restrict any use of the information to criminally investigate or prosecute any alcohol or drug abuse patient.[facility] the event this information is protected by the Federal Confidentiality of Alcohol and Drug Abuse Patient Records regulations: The Federal rules restrict any use of the information to criminally investigate or prosecute any alcohol or drug abuse patient.[facility] the event this information is protected by the Federal Confidentiality of Alcohol and Drug Abuse Patient Records regulations: The Federal rules restrict any use of the information to criminally investigate or prosecute any alcohol or drug abuse patient.[facility] the event this information is protected by the Federal Confidentiality of Alcohol and Drug Abuse Patient Records regulations: The Federal rules restrict any use of the information to criminally investigate or prosecute any alcohol or drug abuse patient.[facility] Center[facility] the event this information is protected by the Federal Confidentiality of Alcohol and Drug Abuse Patient Records regulations: The Federal rules restrict any use of the information to criminally investigate or prosecute any alcohol or drug abuse patient.[facility] the event this information is protected by the Federal Confidentiality of Alcohol and Drug Abuse Patient Records regulations: The Federal rules restrict any use of the information to criminally investigate or prosecute any alcohol or drug abuse patient.[facility] Center[facility] the event this information is protected by the Federal Confidentiality of Alcohol and Drug Abuse Patient Records regulations: The Federal rules restrict any use of the information to criminally investigate or prosecute any alcohol or drug abuse patient.[facility] Center[facility] the event this information is protected by the Federal Confidentiality of Alcohol and Drug Abuse Patient Records regulations: The Federal rules restrict any use of the information to criminally investigate or prosecute any alcohol or drug abuse patient.[facility] Center[facility] the event this information is protected by the Federal Confidentiality of Alcohol and Drug Abuse Patient Records regulations: The Federal rules restrict any use of the information to criminally investigate or prosecute any alcohol or drug abuse patient.[facility] Reason for Visit (unrecogniz ed section and content) Reason Comments Appointment Reason Onset Date Comments Refill Request 01/30/2022 Reason Comments Results Reason Comments Anxiety Depression Ingrown Toenail In grown toenails. H ad surgery done july 2020. 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 Reason Onset Date Comments Refill Request 09/26/2022 Reason Comments Patient Update Reason Comments Cardiology Follow Up N/P Consult KIM Levy Heart Palpatations Stress test 1ECG 01/21/2019 ECG TODAYECHO 01/18/2020 ROOM 9 Patient is expecting, 3 months SOB on going Specialty Diagnoses / Procedures Referred By Jonas t Referred To Contact Cardiology / [facility] Diagnoses Heart palpitations [R00.2] Dizziness [R42] History of syncope [Z87.898 Procedures NEW/CON PATIENT Shona Levy, TRAFFIC LIEUTENANT.MS SQL SERVER DEVELOPER [address] [place] [address] Adonay Caceres DO [address] [address] Referral ID Status Reason Start Date Expiration Date V isits Requested Visits Authorized [id number] Closed Financial Clearance Required - Self Pay Patient Cleared - INN Insurance Found 12/11/2022 03/11/2023 1 1 Specialty Diagnoses / Procedures Referred By Jonas t Referred To Contact Radiology Diagnoses Screening, , for malformation by ultrasound Care plan discussed with patient Procedures MRI (single) CHG MRI W/PLACNTL MATRNL PLVC IMG SING/1ST Cody Farah MD [address] [facility] [address] [place] [address] Referral ID Status Reason Start Date Expiration Date Visits Re quested Visits Authorized [id number] Closed 02/03/2023 03/14/2023 1 1 Care Teams (unrecognized sec tion and content) General Surgeon Relationship Specialty Start Date End Date Autumn Joe DO [address] [place] [address] PCP - General Family Practice 09/11/17 General Surgeon Relationship Specialty Start Date End Date Autumn Joe DO [address] [place] [address] PCP - General Family Practice 09/11/17 General Surgeon Relationship Specialty Start Date End Date Autumn Joe DO [address] [place] [address] PCP - General Family Practice 09/11/17 General Surgeon Relationship Specialty Start Date End Date Autumn Joe DO [address] [place] [address] PCP - General Family Medicine 09/11/17 General Surgeon Relationship Specialty Start Date End Date Autumn Joe DO [address] [place] [address] PCP - General Family Medicine 09/11/17 General Surgeon Relationship Specialty Start Date End Date Autumn Joe DO [address] [place] [address] PCP - General Family Medicine 09/11/17 General Surgeon Relationship Specialty Start Date End Date Autumn Joe DO [address] [place], [place] [id number] PCP - General Family Medicine 09/11/17 General Surgeon Relationship Specialty Start Date End Date Autumn Joe DO [address] [place], [place] [id number] PCP - General Family Medicine 09/11/17 General Surgeon Relationship Specialty Start Date End Date Autumn Joe DO [address] [place], [place] [id number] PCP - General Family Medicine 09/11/17 General Surgeon Relationship Specialty Start Date End Date No Primary Care, , [place] [address] PCP - General Pediatrics 12/09/22 FOR RECORDS PERTAINING TO PATIENTS WHO ARE OR HAVE BEEN ENROLLED IN A CHEMICAL DEPENDENCY/SUBSTANCEABUSE PROGRAM, SOME INFORMATION MAY BE OMITTED. This clinical summary was aggregated from multiple sources. Caution should be exercised in using it in the provision of clinical care. This summary normalizes information from multiple sources, and as a consequence, information in this document may materially change the coding, format and clinical context of patient data. In addition, data may be omitted in some cases. CLINICAL DECISIONS SHOULD BE BASED ON THE PRIMARY CLINICAL RECORDS. [facility] [employer] [facility]. provides no warranty or guarantee of the accuracy or completeness of information in this document.
[2023-05-22 21:54] VITALS: BP 136/80; PULSE 75
[2023-05-22 21:55] VITALS: BMI 28.3
[2023-05-22 21:56] VITALS: TEMP 36.4
--- NOTE | 2023-05-25 22:45 | OB.TRI.PN_ITS ---
Progress Notes Date of Service: 05/22/23 Progress Note: Patient presents for triage evaluation secondary to contractions FHT: 120-130 Moderate variability reactive no decelerations category I tracing [place]: q 3-5 Contractions Assessment and plan: false labor no cervical change Reactive NST, reassuring maternal and status patient discharged to home to follow-up as scheduled. See problem list details for additional plan information. Charges/Coding Procedures Urinary/Genital 52xxx-59xxx: 20475-84 non-stress test Interp
== END 2023-05-23 01:18 | disposition home or self-care (01) ==
LOC: WPOUT 21:47 → WP 21:47
PROVIDERS: PCP Family Medicine; Referring Provider Obstetrics & Gynecology; Visit Provider Obstetrics & Gynecology
DX: O47.9 False labor, unspecified (principal); Z3A.00 Weeks of gestation of pregnancy not specified
CPT/HCPCS: 59025; 59050

== ENCOUNTER 2023-05-27 05:40 | Inpatient (IN) | payer MEDICAID, SELFPAY ==
[2023-05-27] VITALS (55 sets, daily range): BP systolic 96–132; BP diastolic 57–82; PULSE 59–187; RESP 14–16; TEMP 35.8–36.8; O2SAT 96–100; BMI 28.4
[2023-05-27 05:40] LABS: ROM Internal Control Test YES-OK TO RESULT pt. (Internal QC); ROM Patient Test POSITIVE (Negative); Record Kit Lot#, ROM+ K1374
--- OUTSIDE RECORDS SUMMARY | 2023-05-27 05:59 | XMS RPT_ITS | CCD ---
Author Name Unknown Address [address] [place] [address] Organization [facility] Care Team Providers Care Pipefitter Name Role Phone Sheets Autumn PAULSON Primary Care Provider [phone] AUTUMN JOE Primary Care Unavailable SHONA LEVY Referring Unavailable SHONA LEVY Attending Unavailable AUTUMN JOE Primary Care Unavailable MANI HALL Attending Unavailable AUTUMN JOE Primary Care Unavailable AUTUMN JOE Primary Care Unavailable SHONA LEVY Attending Unavailable Sheets Autumn PAULSON Primary Care Provider [phone] ADONAY CACERES Attending Unavailabl e SHONA LEVY Referring Unavailable AUTUMN JOE Primary Care Unavailable No veneer grader, Md Primary Care Provider Mariya vailable CHRISSY [...] CAREMD Primary Care Unavailable ANDRES LEDEZMA Referring UnavailDANIELA Garcia Attending Unavailable NO PRIMARY CAREMD Primary Care Unavailable JENSEN NELSON Attending Unavailable CODY DONALD A Referring Unavailable NO PRIMARY CAREMD Primary Care Unavailable ANDRES LEDEZMA Referring Unavailabl e JOSIANE BHATIA Attending Unavailable SHONA LEVY Primary Care Unavailable CODY DONALD Attending Unavailable SHONA LEVY Referring Unavailable SHONA LEVY Primary Care Unavailable AUTUMN LOMELI Attending Unavailable ANDRES LEDEZMA Referring Unavailjaiver e NO PRIMARY CARE, Primary Care Unavailable [...] Tape-Silicones; Translations: [ADHESIVE TAPE-SILICONES] Drug Allergy 1 [facility] (14 sources) Venom-Honey Bee; Translations: [VENOM-HONEY BEE] Drug Allergy 2 [facility] (2 sources) Chlorhexidine; Translations: [CHLORHEXIDINE] Drug Allergy 3 Hives, Itching [facility] (2 sources) kiwi fruit allergenic extract; Translations: [KIWI EXTRACT] Drug Allergy 9 Anaphylaxis [facility] (1 source) bee venom; Translations: [BEE VENOM] Propensity to adverse reactions to drug (disorder) 2 [facility] Repository (1 source) cefdinir; Translations: [CEFDINIR] Drug Allergy 3 [facility] Repository Medications Current Medications Medication Drug Class(es) [...] height 175.3 cm Adonay Grissom Work Phone: [facility] 12-11-2022 13:07-0400 Body weight 73.98 kg Adonay Grissom Work Phone: [facility] 12-11-2022 13:07-0400 Diastolic blood pressure 60 mm[Hg] Adonay Caceres DO Work Phone: [facility] 12-11-2022 13:07-0400 Heart rate 67 /min Adonay Rico O Work Phone: [facility] 12-11-2022 13:07-0400 SaO2% (BldA) [Mass fraction] 98 % Adonay Caceres DO Work Phone: [facility] 12-11-2022 13:07-0400 Systolic blood pressure 94 mm[Hg] Adonay Caceres DO Work Phone: [facility] 09-06-2022 12:54-0400 Body height 172.7 cm Shona Levy AUTO APPRAISER.RETAIL ZONE SPECIALIST Work Phone: [facility] 09-06-2022 12:54-0400 Body weight 70.76 kg Shona Levy AUTO APPRAISER.RETAIL ZONE SPECIALIST Work Phone: [facility] 09-06-2022 12:54-0400 Diastolic blood pressure 70 mm[Hg] Shona Levy AUTO APPRAISER.RETAIL ZONE SPECIALIST Work Phone: [facility] 09-06-2022 12:54-0400 Heart rate 97 /min Shona Levy AUTO APPRAISER.RETAIL ZONE SPECIALIST Work Phone: [facility] 09-06-2022 12:54-0400 SaO2% (BldA) [Mass fraction] 98 % Shona Levy AUTO APPRAISER.RETAIL ZONE SPECIALIST Work Phone: [facility] 09-06-2022 12:54-0400 Systolic blood pressure 110 mm[Hg] Shona Trisvitlana AUTO APPRAISER.RETAIL ZONE SPECIALIST Work Phone: [facility] Encounters Encounter Date Encounter Type Care Provider Facility Start: 05-20-2023 End: 05-20-2023 ambulatory CODY DONALD [facility] Start: 04-15-2023 End: 04-15-2023 ambulatory ANDRES LEDEZMA [facility] Start: 03-12-2023 End: 03-12-2023 ambulatory ANDRES LEDEZMA [facility] Start: 03-03-2023 End: 03-03-2023 ambulatory AUTUMN LOMELI [facility] Start: 02-18-2023 End: 02-18-2023 ambulatory JENSEN NELSON [facility] Start: 02-14-2023 End: 02-14-2023 ambulatory ANDRES LEDEZMA [facility] Start: 02-12-2023 End: 02-12-[address] [facility] Start: 02-12-2023 End: 02-12-2023 [facility] Start: 02-11-2023 End: 02-12-2023 ambulatory [facility] Start: 02-11-2023 End: 02-11-2023 Subsequent hospital visit by physician Cody Donald MD Work Phone: Magnetic Resonance Procedures Date Procedure Procedure Detail Performing Clinician Start: 12-11-2022 Ecg routine ecg w/le ast 12 lds i&r only [facility] Provider Start: 12-19-2020 Adult depression screening assessment Shona Levy APRN.CNP Work Phone: Plan of Treatment Date Care Activity Detail Author Start: 01-07-2025 PAP TESTING PAP TESTING [facility] Start: 12-19-2023 PAP TESTING PAP TESTING [facility] Start: 10-10-2023 CHLAMYDIA SCREENING (-) CHLAMYDIA SCREENING (18-) [facility] Start: 10-10-2023 GC (GONORRHEA) SCREE JANNETTE (18-24) GC (GONORRHEA) SCREENING (18-) [facility] Start: 07-27-2023 COVID-19 VACCINE (#1) COVID-19 VACCI NE (#1) [facility] Immunizations Immunization Date Immunization Notes Care Provider Fa cilisaige 02-26-2020 influenza virus vaccine, unspecified formulation Shona Levy APRN.CNP Work Phone: [facility] Work Phone: 02-04-2020 influenza, injectabl e, quadrivalent, preservative free Shona Levy APRN.[facility] Work Phone: [facility] Work Phone: Payers Date Payer Category Payer Medicaid [employer] [place] [id number] 2022-Present [phone] [address] [place] [address] Medicaid [id number] 2021 Unknown [id number] 2021 Unknown [id number] 1998 Unknown [id number] [id number] 1998 Unknown [id number] 1998 Unknown [id number] [id number]. 1998 Unknown [id number] [id number] 1998 Unknown [id number] [id number] 1998 Unknown [id number] [id number] 1998 Unknown [id number] [id number] 1998 Unknown [id number] 2.16.840.1.502614.3.579.2 1998 Unknown [id number] 2.16.840.1.222546.3.579.2 1998 Unknown [id number] [id number] 1998 Unknown [id number] [id number] 1998 Unknown [id number] [id number] 1998 Unknown [id number] [id number] 1998 Unknown [id number] [id number] Unknown [id number] Social History Date Type Detail Facility Start: 06-24-2017 End: 01-29-2023 Tobacco smoking status NHIS Never smoked tobacco [facility] Start: 06-24-2017 End: 01-29-2023 Tobacco use and exposure Smokeless tobacco non-user [facility] Start: 07-15-2021 End: 02-10-2023 Alcohol intake Current non-drinker of alcohol (finding) [facility] Start: 2000 Sex Assigned At Female [facility] Start: 12-28-2021 End: 01-07-2022 Exposure to SARS-CoV-2 (event) Not sure [facility] Start: 07-26-2022 End: 12-11-2022 Alcohol intake Current drinker of alcohol (finding) [facility] Start: 07-26-2022 Alcohol Comment occassionally [facility] Start: 12-11-2022 End: 02-10-2023 History of Social function [facility] Start: 12-11-2022 End: 02-10-2023 Tobacco use panel [facility] Adult Depression Screening Assessment 3 [facility] Start: 08-21-2020 Gender identity Identifies as female gender (finding) [facility] Start: 08-21-2020 Sexual orientation Heterosexual (finding) [facility] History of tobacco use Passive smoker [facility] Start: 01-29-2023 Tobacco Comment Mom wants to quit, needs help to quit [facility] Start: 09-15-2022 [facility] Start: 2000 Sex Assigned At Not on file [facility] Medical Equipment Procedure Code Equipment Code Equipment Origin al Text Equipment Identifier Dates Alloderm 2 X 4 [id number] Start: 03-12-2017 Clinical Notes 11-13-2020 to 12-11-2022 Adonay Caceres DO - 12/11/2022 12:56 PM EDTTelephone Encounter - Polo RiveraREDD clemons - 11/04/2022 8:30 AM EDTTelephone Encounter - Polo Piper MA - 11/01/2022 8:37 AM EDT Note Date & Type Note Facility 12-11-2022 Note HNO ID: [id number] Author: Adonay Caceres DO Service: ? Author Type: Physician Type: Progress Notes Filed: 12/11/2022 1:45 PM Note Text: [facility] Heart and Vascular Boomer Tamir Pereira Department of Cardiovascular Medicine SECTION [...] past. She did see Dr. Spring at [facility] for this in the past. She has been having heart racing and palpitations for t he last 6 years and this has not changed during . She feels these a few times a day with fast heart rate then gets some SOB that is worse with exertion but it is a little better with . She works 8-10 hrs per day a [employer]. She was on metoprolol but stopped when [...] JVD, carotids well felt, no bruits. CARDIAC: Anna palpable in the 5th intercostal space mid [...] Peripheral pulses w (more content not included)... [facility] 12-11-2022 History of Presen t illness Narrative Images from the original note were not included. [facility] Heart [facility] Vascular [facility] Tamir Pereira Department of Cardiovascular Medicine SECTION OF REGIONAL CARDIOLOGY Consultation requested by Auutmn Joe DO for an opinion regarding Agustina [...] past. She did see Dr. Spring at [facility] for this in the past. She has been having heart racing and palpitations for t he last 6 years and this has not changed during . She feels these a few times a day with fast heart rate then gets some SOB that is worse with exertion but it is a little better with . She works 8-10 hrs per day a [employer]ging [employer]. She was on [...] JVD, carotids well felt, no bruits. CARDIAC: Anna palpable in the 5th intercostal space mid [...] was 11.2. The double product achieved was [id number]. Peak heart rate was 181 bpm and [...] Strange, et al. 2017 Guidelines of the [place] [employer] for the Diagnosis and Management [...] DO, FACC, FCCP, FACOI CC: Autumn Joe [address] [place] [address] documented in this encounter [facility] 11-04-2022 Miscellaneous Notes Left a message for patient to call back or reply through [employer] Polo Piper MA Attempted reach patient no answer and VM box is full Polo Piper MA Please call pt- she should wean off celexa by taking it every other day for one week, because she is . Is she taking a vitamin with folic acid and iron? Is she under the care of an AERIAL INSTALLER? Autumn Joe DO Patient wanted Dr. Joe to know she is 7 weeks and 5 days . Sherrill Guidry MA documented in this encounter [facility] 10-15-2022 Note HNO ID: [id number] Author: Polo Piper MA Service: ? Author Type: Shirt Folder Type: Progress Notes Filed: 10/15/2022 3:50 PM Note Text: ED Follow Up: Patient discharged from [facility] ED on 10/09/22. 1. How are you [...] you able to contact the office or semiconductor engineer provider prior to your ED visit? Not applicable 5. Is there anything else I can do for you today? Not applicable Polo Piper MA [facility] 10-15-2022 Note Patient Outreach (AG FAMPLE) AGUSTINA BARONE ([id number]) 2000 F Date Time Provider Department 10/15/22 AUTUMN JOE During your visit today, we recorded the following information about you: Polo Piper MA 10/15/2022 3:50 PM Signed ED Follow Up: Patient discharged from [facility] ED on 10/09/22. 1. How are you [...] you able to contact the office or semiconductor engineer provider prior to your ED visit? Not [...] Encounter Status:Closed by POLO PIPER on 10/15/22 [facility] 09-26-2022 Miscellaneous Notes Patient requesting refills as follows: Last Office Visit 09/06/22. Patient needs a new script for 20 mg Requested Prescriptions Pending Prescriptions Disp Refills citalopram (CELEXA) 20 mg tablet 30 tablet 2 Sig: Take 1 tablet by mouth once daily. Please review and advise. Polo Piper MA documented in this encounter [facility] 09-06-2022 Note HNO ID: [id number] Author: Shona Levy APRN.RETAIL ZONE SPECIALIST Service: ? Author Type: Nurse Practitioner Type: Progress Notes Filed: 09/11/2022 11:00 PM Note Text: This note was created using Dynamic Energy[employer]. Subjective Agustina Barone is a 21 year [...] Cognition and Isaias (more content not included)... [facility] 09-06-2022 History of Presen t illness Narrative Images from the original note were not included. This note was created using [employer]. Subjective Agustina Barone is a 21 year [...] MG TABLET FU 6-8 weeks Shona Levy APRN.RETAIL ZONE SPECIALIST documented in this encounter [facility] 07-29-2022 Miscellaneous Notes Mail box is full cannot accept any messages. Ronda Thakur MA ----- Message from Shona Levy APRN.RETAIL ZONE SPECIALIST sent at 07/29/2022 9:04 AM EDT ----- Please notify patient results are normal. Thank you. Shona Levy APRN.RETAIL ZONE SPECIALIST documented in this encounter [facility] 07-26-2022 Note HNO ID: [id number] Author: Shona Levy APRN.CNP Service: ? Author Type: Nurse Practitioner Type: Progress Notes Filed: 07/26/2022 2:10 PM Note Text: This note was created using [employer]. Subjective Agustina Barone is a 21 year [...] boyfriend Lives with her grandmother Works at [employer] - not a high stress job Will [...] other (smoker) Mot (more content not included)... [facility] 02-07-2022 Miscellaneous Notes Patient's request for medication [...] Renu Gamble LPN documented in this encounter [facility] 01-30-2022 Miscellaneous Notes Patient last seen 07/20/2020. Patient will need f/u appt for further refills. Please reach out to patient to schedule appt. Thanks! Jen Pierre MA documented in this encounter [facility] 01-30-2022 Miscellaneous Notes Patient's request for medication [...] Jen Pierre MA documented in this encounter [facility] 12-25-2021 Miscellaneous Notes pharmacy electronically requesting refills [...] Sherrill Guidry MA documented in this encounter [facility] documented as of this encounter (statuses as of 12/25/2021) [facility] History of Past illness Narrative* Problem Noted Date Resolved Date Sprain of right wrist 11/21/2020 01/09/2021 documented as of this encounter (statuses as of 01/04/2022) [facility] History of Past illness Narrative* Problem Noted Date Resolved Date Sprain of right wrist 11/21/2020 01/09/2021 documented as of this encounter (statuses as of 01/04/2022) [facility] History of Past illness Narrative* Problem Noted Date Resolved Date Sprain of right wrist 11/21/2020 01/09/2021 documented as of this encounter (statuses as of 01/30/2022) [facility] History of Past illness Narrative* Problem Noted Date Resolved Date Sprain of right wrist 11/21/2020 01/09/2021 documented as of this encounter (statuses as of 01/31/2022) [facility] History of Past illness Narrative* Problem Noted Date Resolved Date Sprain of right wrist 11/21/2020 01/09/2021 documented as of this encounter (statuses as of 02/07/2022) [facility] History of Past illness Narrative* Problem Noted Date Resolved Date Sprain of right wrist 11/21/2020 01/09/2021 documented as of this encounter (statuses as of 07/29/2022) [facility] History of Past illness Narrative* Problem Noted Date Resolved Date Sprain of right wrist 11/21/2020 01/09/2021 documented as of this encounter (statuses as of 09/12/2022) [facility] History of Past illness Narrative* Problem Noted Date Resolved Date Sprain of right wrist 11/21/2020 01/09/2021 documented as of this encounter (statuses as of 09/26/2022) [facility] History of Past illness Narrative* Problem Noted Date Resolved Date Sprain of right wrist 11/21/2020 01/09/2021 documented as of this encounter (statuses as of 11/08/2022) [facility] History of Past illness Narrative* Problem Noted Date Diagnosed Date Resolved Date Sprain of right wrist 11/21/20202020 documented as of this encounter (statuses as of 12/11/2022) [facility] NoteHNO ID: [id number] Author: JESÚS Guillen Service: Radiology Author Type: Clinical Chief Procurement Officer Type: Progress Notes Filed: 11/13/2020 1:29 PM [...] BY: JESÚS Guillen November 13, 2020 1:29 [facility]* Diagnosis Mild episode of recurrent major depressive disorder (HCC)- Primary Anxiety Anxiety state, unspecified Ingrown toenail Ingrowing nail Cellulitis of toe of right foot Cellulitis and abscess of toe, unspecified [facility] Diagnosis Mild episode of recurrent major depressive disorder (HCC) Anxiety Anxiety state, unspecified documented in this encounter [facility] note* Diagnosis Heart palpitations- Primary Palpitations History of syncope Other specified personal history presenting hazards to health Dizziness Dizziness and giddiness Migraine without aura and without status migrainosus, not intractable Migraine without aura, without mention of intractable migraine without mention of status migrainosus Unilateral cleft palate with cleft lip, complete [facility]* Diagnosis Screening, , for malformation by ultrasound Encounter for routine screening for malformation using ultrasonics Treatment Center Plan of Care documented in this encounter [facility] Summary Purpose Family History No Family History [...] right foot Procedures CONSULT TO PODIATRY OFFICE/OUTPATIENT [facility] 60-74 MINUTES Shona Levy APRN.RETAIL ZONE SPECIALIST [address] [address] [place] [place] [address] Referral ID Status Reason Start Date Expiration Date Visits Requested Visits Authorized [id number] Authorized PCP Requested Referral 09/06/2022 09/06/2023 1 1 Additional Source Comments INFORMATION SOURCE (unrecogn ized section and content) DATE CREATED AUTHOR AUTHOR'S ORGANIZ ATION 11/14/2020 [facility] DATE CREATED AUTHOR AUTHOR'S ORGANIZ ATION 11/09/2022 [facility] DATE CREATED AUTHOR AUTHOR'S ORGANIZ ATION 12/25/2022 [facility] DATE CREATED AUTHOR AUTHOR'S ORGANIZ ATION 05/21/2023 [facility] Source Comments (unrecognize d section and content) In the event this informatio n is protected by the Federal Confidentiality of Alcohol and Drug Abuse Patient Records regulations: The Federal rules restrict any use of the information to criminally investigate or prosecute any alcohol or drug abuse patient.[facility] the event this information is protected by the Federal Confidentiality of Alcohol and Drug Abuse Patient Records regulations: The Federal rules restrict any use of the information to criminally investigate or prosecute any alcohol or drug abuse patient.[facility] the event this information is protected by the Federal Confidentiality of Alcohol and Drug Abuse Patient Records regulations: The Federal rules restrict any use of the information to criminally investigate or prosecute any alcohol or drug abuse patient.[facility] the event this information is protected by the Federal Confidentiality of Alcohol and Drug Abuse Patient Records regulations: The Federal rules restrict any use of the information to criminally investigate or prosecute any alcohol or drug abuse patient.[facility] the event this information is protected by the Federal Confidentiality of Alcohol and Drug Abuse Patient Records regulations: The Federal rules restrict any use of the information to criminally investigate or prosecute any alcohol or drug abuse patient.[facility] the event this information is protected by the Federal Confidentiality of Alcohol and Drug Abuse Patient Records regulations: The Federal rules restrict any use of the information to criminally investigate or prosecute any alcohol or drug abuse patient.[facility] the event this information is protected by the Federal Confidentiality of Alcohol and Drug Abuse Patient Records regulations: The Federal rules restrict any use of the information to criminally investigate or prosecute any alcohol or drug abuse patient.[facility] the event this information is protected by the Federal Confidentiality of Alcohol and Drug Abuse Patient Records regulations: The Federal rules restrict any use of the information to criminally investigate or prosecute any alcohol or drug abuse patient.[facility] the event this information is protected by the Federal Confidentiality of Alcohol and Drug Abuse Patient Records regulations: The Federal rules restrict any use of the information to criminally investigate or prosecute any alcohol or drug abuse patient.[facility] the event this information is protected by the Federal Confidentiality of Alcohol and Drug Abuse Patient Records regulations: The Federal rules restrict any use of the information to criminally investigate or prosecute any alcohol or drug abuse patient.[facility] the event this information is protected by the Federal Confidentiality of Alcohol and Drug Abuse Patient Records regulations: The Federal rules restrict any use of the information to criminally investigate or prosecute any alcohol or drug abuse patient.[facility] Reason for Visit (unrecogniz ed section and content) Reason Comments Appointment Reason Onset Date Comments Refill Request 01/30/2022 Reason Comments Results Reason Comments Anxiety Depression Ingrown Toenail In grown toenails. H ad surgery done july 2020. 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 Reason Onset Date Comments Refill Request 09/26/2022 Reason Comments Patient Update Reason Comments Cardiology Follow Up N/P Consult KIM Levy Heart Palpatations Stress test 1ECG 01/21/2019 ECG [facility]CHO 01/18/2020 ROOM 9 Patient is expecting, 3 months SOB on going Specialty Diagnoses / Procedures Referred By Jonas t Referred To Contact Cardiology / [facility] Diagnoses Heart palpitations [R00.2] Dizziness [R42] History of syncope [Z87.898 Procedures NEW/CON PATIENT Shona Levy, AUTO APPRAISER.RETAIL ZONE SPECIALIST [address] [place] [address] Adonay Caceres DO [address] [address] Referral ID Status Reason Start Date Expiration Date V isits Requested Visits Authorized [id number] Closed Financial Clearance Required - Self Pay Patient Cleared - INN Insurance Found 12/11/2022 03/11/2023 1 1 Specialty Diagnoses / Procedures Referred By Jonas t Referred To Contact Radiology Diagnoses Screening, , for malformation by ultrasound Care plan discussed with patient Procedures MRI (single) CHG MRI W/PLACNTL MATRNL PLVC IMG SING/1ST Cody Farah MD [address] [facility] [address] [place] [address] Referral ID Status Reason Start Date Expiration Date Visits Re quested Visits Authorized [id number] Closed 02/03/2023 03/14/2023 1 1 Care Teams (unrecognized sec tion and content) Pipefitter Relationship Specialty Start Date End Date Autumn Joe DO [address] [place] [address] PCP - General Family Practice 09/11/17 Pipefitter Relationship Specialty Start Date End Date Autumn Joe DO [address] [place] [address] PCP - General Family Practice 09/11/17 Pipefitter Relationship Specialty Start Date End Date Autumn Joe DO [address] [place] [address] PCP - General Family Practice 09/11/17 Pipefitter Relationship Specialty Start Date End Date Autumn Joe DO [address] [place] [address] PCP - General Family Medicine 09/11/17 Pipefitter Relationship Specialty Start Date End Date Autumn Joe DO [address] [place] [address] PCP - General Family Medicine 09/11/17 Pipefitter Relationship Specialty Start Date End Date Autumn Joe DO [address] [place] [address] PCP - General Family Medicine 09/11/17 Pipefitter Relationship Specialty Start Date End Date Autumn Joe DO [address] [place], [place] [id number] PCP - General Family Medicine 09/11/17 Pipefitter Relationship Specialty Start Date End Date Autumn Joe DO [address] [place], [place] [id number] PCP - General Family Medicine 09/11/17 Pipefitter Relationship Specialty Start Date End Date Autumn Joe DO [address] [place], [place] [id number] PCP - General Family Medicine 09/11/17 Pipefitter Relationship Specialty Start Date End Date No Primary Care, , [place] [address] PCP - General Pediatrics 12/09/22 FOR RECORDS [...] BE BASED ON THE PRIMARY CLINICAL RECORDS. [facility] [employer] [facility]. provides no warranty or guarantee of the accuracy or completeness of information in this document.
[2023-05-27] MEDS: Lactated Ringers 1,000 ML 50 ML IV (06:15)
[2023-05-27] MEDS: LACTATED RINGERS 500 ML 999 ML IV ×2 (06:20→09:53)
[2023-05-27 06:29] LABS: Absolute Lymphocyte Count 2.45 X10^3/uL (0.83-4.51); Absolute Neutrophil Count 6.9 X10^3/uL (2.0-7.7); Basophil# 0.07 X10^3/uL; Basophil% 0.7 % (0-1); Eosinophil# 0.23 X10^3/uL; Eosinophils% 2.2 % (0-5); Hematocrit 36.1 % (37-47); Hemoglobin 12.3 g/dL (12.0-15.0); Lymphocyte # 2.45 X10^3/ul (0.83-4.51); Lymphocyte % 23.1 % (19-41); Mean Corp Hgb Conc 34.1 g/dL (32-36); Mean Corpuscular Hgb 27.8 pg (27.0-32.0); Mean Corpuscular Volume 81.5 fL (81-99); Mean Platelet Vol. 10.3 fl (6.2-12.0); Monocyte% 7.6 % (0-10); NRBC Flagged by Analyzer 0 % (0-5); Neutrophil % 65.1 % (47-70); Platelet Count 175 K/mm3 (150-450); RBC Distribution Width CV 13.9 % (11.6-14.6); RBC Distribution Width SD 40.6 fl (35.1-43.9); Red Blood Count 4.43 M/mm3 (4.2-5.4); White Blood Count 10.6 K/mm3 (4.4-11.0)
[2023-05-27] MEDS: fentaNYL-bupivacaine (epidural) 100 ML BAG EPIDURAL (07:30)
[2023-05-27 08:09] LABS: Syphilis Antibodies Non-reactive
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
[2023-05-27] MEDS: Ondansetron 4 MG/2 ML Vial IV (09:29)
[2023-05-27] MEDS: Lactated Ringers 1,000 ML 200 ML IV (09:53)
[2023-05-27] MEDS: Oxytocin 10 UNITS/ML Vial IM (12:22)
[2023-05-27] MEDS: Oxytocin 15 Units/NS 250ml 15 UNITS/250 ML IV.SOLN 83 UNITS IV (12:22)
[2023-05-27] MEDS: Methylergonovine 0.2 MG/ML Ampul 0.200000000000000011 MG IM (12:38)
[2023-05-27] MEDS: Lidocaine 1% (20 ml mdv) 20 ML Vial INFILT (12:48)
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
[2023-05-27] MEDS: Sertraline 50 MG Tablet PO (13:44)
[2023-05-27] MEDS: Ibuprofen 600 MG Tablet PO (13:44)
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
--- NOTE | 2023-05-27 16:53 | DCINST_ITS ---
Discharge Instructions Diet Discharge Diet: No restrictions Activity Discharge Activity: Return to Normal Activity May resume sexual activity in: 6-8 weeks Dressing / Incision Call your doctor if you observe: Fever of 101 or Higher, Coldness, Increased Pain, Numbness or Tingling, Change in Color, Inability to urinate, Inability to have a bowel movement, Using more than 1 pad per hour, Shortness of breath, Dizziness, Fainting spells, Swelling in the ankles, Chest pain, Increased palpitations (irregular heartbeat), Calf discomfort and Uncontrolled pain Follow Up Care Please Follow Up With: Janice Ribera CNM When: Please call the office to schedule your follow up appointment in 6 weeks. If you had high blood pressure please call to schedule an appointment in 2 weeks. Test Results: Test results from this visit will be discussed in further detail at your follow- up appointment, if applicable. Discharge Plan Admission Admit Date/Time: 05/27/23 05:40 Attending Provider: Janice Ribera Primary Care Provider: Esperanza Joe Discharge Orders/Prescriptions Prescriptions: No Action folic acid 1 mg tablet 1 mg PO DAILY Qty: 90 4RF ferrous gluconate 324 mg (37.5 mg iron) tablet 324 mg PO DAILY Qty: 90 4RF sertraline [Zoloft] 50 mg tablet 50 mg PO DAILY Qty: 30 3RF PNV cmb#95-ferrous fumarate-FA [ Multivitamins] 28 mg iron- 800 mcg tablet 1 tab PO DAILY famotidine 20 mg tablet 20 mg PO DAILY Referrals / Follow Up: Esperanza Joe DO [Primary Care Provider] - Disposition Disposition (needs filled in before D/C Order can be placed): Home, Self Care
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
== END 2023-05-27 21:15 | disposition home or self-care (01) | DRG 560 ==
LOC: WPOUT 05:42 → WP 05:42
PROVIDERS: Registered Nurse; Admitting Provider Advanced Practice Midwife; PCP Family Medicine; Referring Provider Advanced Practice Midwife; Visit Provider Advanced Practice Midwife
DX: O70.0 First degree perineal laceration during delivery (principal); Z37.0 Single live birth; O99.344 Other mental disorders complicating childbirth; F17.210 Nicotine dependence, cigarettes, uncomplicated; F41.9 Anxiety disorder, unspecified; O99.334 Smoking (tobacco) complicating childbirth; Z3A.38 38 weeks gestation of pregnancy; Z87.730 Personal history of (corrected) cleft lip and palate; Z80.3 Family history of malignant neoplasm of breast
CPT/HCPCS: 59025; 59050; 84112; 85025; 86780; 86850; 86900; 86901; 99221; J7120; G0378; J2405

== ENCOUNTER → 2023-11-12 | Outpatient (CLI) | payer MEDICAID, SELFPAY | END | disposition home or self-care (01) | LOC: LABSPEC 12:19 | PROVIDERS: PCP Family Medicine; Referring Provider Nurse Practitioner Family; Visit Provider Nurse Practitioner Family | DX: A64 Unspecified sexually transmitted disease (principal) | CPT/HCPCS: 87491; 87591 ==

== ENCOUNTER → 2023-11-18 | Outpatient (CLI) | payer MEDICAID, SELFPAY ==
--- NOTE | 2023-11-18 12:48 | US_ITS ---
INDICATION: bilateral ovarian pain EXAMINATION: Ultrasound US Pelvis Non OB Complete With Transvaginal Imaging TECHNIQUE: Transabdominal and transvaginal pelvic ultrasound was performed. Grayscale, spectral waveform, and color flow Doppler evaluation of the adnexa. COMPARISON: No relevant prior comparison study available FINDINGS: UTERUS: Anteverted. The uterus measures 7.1 x 5.3 x 3.9 cm. There is no uterine mass. The endometrial stripe measures 5 in AP diameter which is within normal limits. RIGHT OVARY: 2.4 x 2.6 x 1.5 cm. Non-enlarged, normal echogenicity. There is normal arterial inflow and venous outflow present in the right ovary. LEFT OVARY: 1.9 x 2.6 x 1.7 cm. Non-enlarged, normal echogenicity. There is normal arterial inflow and venous outflow present in the left ovary. FREE FLUID: None. US/Pelvic w/ Transvaginal IMPRESSION: Unremarkable pelvic ultrasound. Electronically Signed: Heriberto Ferguson MD at 14:55 EDT ,
== END | disposition home or self-care (01) ==
LOC: US 12:45
PROVIDERS: PCP Family Medicine; Referring Provider Nurse Practitioner Family; Visit Provider Nurse Practitioner Family
DX: N94.89 Other specified conditions associated with female genital organs and menstrual cycle (principal)
CPT/HCPCS: 76830; 76856

== ENCOUNTER → 2024-02-13 | Outpatient (CLI) | payer MEDICAID, SELFPAY ==
[2024-02-13 12:41] LABS: hCG Titer Quant., Serum < 1 mIU/mL (1-3)
== END | disposition home or self-care (01) ==
LOC: LAB 11:42
PROVIDERS: PCP Family Medicine; Referring Provider Advanced Practice Midwife; Visit Provider Advanced Practice Midwife
DX: N91.2 Amenorrhea, unspecified (principal)
CPT/HCPCS: 36415; 84702

== ENCOUNTER → 2024-03-02 | Outpatient (CLI) | payer MEDICAID, SELFPAY ==
--- NOTE | 2024-03-02 10:09 | US_ITS ---
HISTORY: IUD placement. TECHNIQUE: Transvaginal pelvic ultrasound was performed with sarmiento scale and color Doppler evaluation. 95 images. COMPARISON: 11/18/2023. FINDINGS: UTERUS: 7.6 x 4.2 x 5.1 cm. Anteverted. ENDOMETRIAL THICKNESS: 6 mm. Intrauterine device in place. RIGHT OVARY: 2 x 2 x 3.6 cm. 1.1 x 1.7 x 2 cm follicular cyst. LEFT OVARY: 1.5 x 2.4 x 2 cm. No adnexal masses. FREE FLUID: None. US/Transvaginal Non- IMPRESSION: Intrauterine device in place. 2 cm right ovarian cyst. Electronically Signed: Iesha Phelps MD at 9:30 EDT ,
== END | disposition home or self-care (01) ==
LOC: US 10:08
PROVIDERS: PCP Family Medicine; Referring Provider Advanced Practice Midwife; Visit Provider Advanced Practice Midwife
DX: Z30.9 Encounter for contraceptive management, unspecified (principal)
CPT/HCPCS: 76830

== ENCOUNTER → 2025-03-01 | Outpatient (CLI) | payer MEDICAID, SELFPAY ==
[2025-03-01 17:11] LABS: hCG Titer Quant., Serum < 1 mIU/mL (<9 non-preg)
== END | disposition home or self-care (01) ==
PROVIDERS: Nurse Practitioner Women's Health; PCP Family Medicine; Visit Provider Obstetrics & Gynecology
DX: N91.2 Amenorrhea, unspecified (principal)
CPT/HCPCS: 36415; 84702